=== PATIENT | male | born 1980 | race Caucasian/White ===

== ENCOUNTER 2016-10-11 23:25 | Inpatient (IN) | payer MEDICAID ==
--- NOTE | 2016-10-12 00:09 | EDPHY ---
H & P Stated Complaint: med clear chronic hx no c/o HPI/ROS: HPI CHIEF COMPLAINT: Shortness of breath, hypertension, fluid buildup HISTORY OF PRESENT ILLNESS: This patient very pleasant 36-year-old male significant past medical history for multiple chronic medical problems including COPD on oxygen 2 L 24 hours day, pre diabetes, pacemaker due to 3rd degree heart block, hypertension, and heart failure who presents to the emergency room after he was rest tonight brought to assisted. Upon arrival to assisted they did intake vitals and he had a low oxygen level of 71% however he was not on his oxygen. Presents emergency room stating they does feel short of breath and that he has fluid overload. Patient tells me that he has been compliant with his medications however he is not taking any of his medications today. He last took his blood pressure medication yesterday. It is noted upon arrival to the emergency room is blood pressure is over 200. He has no chest pain but does endorse shortness of breath. Heart rate is noted to be tachycardic in the 1 teens. He tells me his weight is way up and feels that he needs diuresis. Past Medical History: Hypertension, heart failure, chronic kidney disease, COPD , prediabetes, oxygen dependent, third-degree heart block, pacemaker Past Surgical History: Left chest pacemaker, boxer's fracture Social History: denies use of drugs alcohol tobacco products Family History: Noncontributory ROS REVIEW OF SYSTEMS: A comprehensive 10 point review of systems is otherwise negative aside from elements mentioned in the history of present illness. Exam Constitutional appears nontoxic triage nursing summary reviewed, vital signs reviewed, awake/alert. Eyes normal conjunctivae and sclera, EOMI, PERRLA. HENT normal inspection, atraumatic, moist mucus membranes, no epistaxis, neck supple/ no meningismus, no raccoon eyes. Respiratory clear to auscultation bilaterally, normal breath sounds, no respiratory distress, no wheezing. Cardiovascular rate normal, regular rhythm, no murmur, no edema, distal pulses normal. Gastrointestinal soft, non-tender, no rebound, no guarding, normal bowel sounds, no distension, no pulsatile mass. Genitourinary no CVA tenderness. Musculoskeletal no midline vertebral tenderness, full range of motion, no calf swelling, no tenderness of extremities, no meningismus, good pulses, neurovascularly intact. Skin abdominal pannus is red consistent with anasarca, pink, warm, & dry, no rash, skin atraumatic. Neurologic awake, alert and oriented x 3, AAOx3, moves all 4 extremities equally, motor intact, sensory intact, CN II-XII intact, normal cerebellar, normal vision, normal speech. Psychiatric normal mood/affect. Heme/Lymph/Immune anasarca. Differential Diagnosis: includes but is not limited to in a particular order medication noncompliance, hypertensive urgency, volume overload, heart failure, COPD, pneumonia Medical Decision Making: plan for this patient is to restart his home blood pressure medication here in the emergency room, obtain an EKG due to tachycardia , chest x-ray basic blood work. And will re-evaluate. At this time patient has been placed on a full campus monitor and 2 L nasal cannula with an oxygen saturation that is 93%. Re-evaluation: EKG interpretation by me on record in [id number] system. Impression time of EKG 1:35 a.m., this is sinus tachycardia rate of 106, LVH present. T-wave abnormality noted V5 V6 as well as aVL. ED x-ray chest one view: this shows cardiomegaly, poor inspiratory effort, mild pulmonary edema. 0252: Re-evaluation this time patient's blood pressure improved 152/121. No chest pain at this time. He does have a positive troponin most likely due to significant hypertension. No indication he is having acute coronary syndrome or acute ischemia at this time. He is hemodynamically stable. Patient be admitted PCU with a positive troponin and hypertension. His blood pressure improved nicely with p. o. meds and IV hydralazine. No chest pain or shortness of breath at this time. Spoke with Dr. Peng hospalist who agrees to admit. Source: Patient - Personal History Current Tetanus/Diphtheria Vaccine: Yes Current Tetanus Diphtheria and Acellular Pertussis (TDAP): Yes Tetanus Vaccine Date: CURRENT - Medical/Surgical History Hx Asthma: No Hx Chronic Respiratory Disease: Yes Hx Diabetes: No Hx Cardiac Disease: Yes Hx Renal Disease: Yes Hx Cirrhosis: No Hx Alcoholism: No Hx HIV/AIDS: No Hx Splenectomy or Spleen Trauma: No Other PMH: PMH: chf; htn; stage 2 kidney dis; copd, pre-diabetic. PSH: pacemaker - Social History Smoking Status: Former smoker Constitutional: Initial Vital Signs Temperature (C) 36.8 C 10/11/16 23:40 Heart Rate 115 H 10/11/16 23:40 Respiratory Rate 22 H 10/11/16 23:40 Blood Pressure 225/148 H 10/11/16 23:40 O2 Sat (%) 95 10/11/16 23:40 O2 Delivery Mode Nasal Cannula O2 (L/minute) 2 Allergies/Adverse Reactions: No Known Allergies Allergy (Verified 05/11/16 14:33) Home Medications: Medication Instructions Recorded Torsemide [Demadex] 50 mg PO BIDDIUR 10/11/16 Aspirin [Aspirin 81mg (*)] 81 mg PO DAILY 10/12/16 Atorvastatin Calcium [Lipitor 40 40 mg PO DAILY 10/12/16 mg (*)] Carvedilol [Coreg (*)] 50 mg PO BIDMEAL 10/12/16 Hydralazine HCl 100 mg PO BIDMEAL 10/12/16 Metformin HCl [Metformin 1000 mg] 1,000 mg PO BIDMEAL 10/12/16 Spironolactone [Aldactone 25 MG 25 mg PO BID 10/12/16 (*)] amLODIPine BESYLATE [Norvasc 5 mg 5 mg PO DAILY 10/12/16 (*)] clonIDINE [Catapres (*)] 0.1 mg PO BID 10/12/16 Medical Decision Making - Data Points Laboratory Results: Laboratory Results 10/12/16 01:20 10/12/16 01:20 Medications Given: Discontinued Medications Amlodipine Besylate (Norvasc) 5 mg PO EDNOW ONE Stop: 10/12/16 00:46 Last Admin: 10/12/16 01:40 Dose: 5 mg Aspirin (Aspirin) 324 mg PO ONCE ONE Stop: 10/12/16 03:11 Last Admin: 10/12/16 03:05 Dose: 324 mg Carvedilol (Coreg) 3.125 mg PO EDNOW ONE Stop: 10/12/16 00:46 Last Admin: 10/12/16 01:40 Dose: 3.125 mg Carvedilol (Coreg) 50 mg PO BIDMEAL LUCILA Stop: 04/10/17 17:59 Last Admin: 10/12/16 16:10 Dose: 50 mg Clonidine (Catapres) 0.2 mg PO EDNOW ONE Stop: 10/12/16 00:46 Last Admin: 10/12/16 01:40 Dose: 0.2 mg Clonidine (Catapres) 0.1 mg PO ONCE ONE Stop: 10/12/16 16:31 Last Admin: 10/12/16 16:26 Dose: 0.1 mg Clonidine (Catapres) 0.1 mg PO ONCE ONE Stop: 10/12/16 16:31 Last Admin: 10/12/16 16:40 Dose: Not Given Enoxaparin Sodium (Lovenox) 150 mg SC EDNOW ONE Stop: 10/12/16 02:19 Last Admin: 10/12/16 03:57 Dose: 150 mg Furosemide (Lasix Injection) 40 mg IVP ONCE ONE Stop: 10/12/16 02:53 Last Admin: 10/12/16 03:12 Dose: 40 mg Hydralazine HCl (Apresoline) 10 mg IVP EDNOW ONE Stop: 10/12/16 02:20 Last Admin: 10/12/16 02:52 Dose: 10 mg Perflutren Lipid Microsphere (Definity) 0 mg IV ONCE ONE Stop: 10/12/16 12:31 Last Admin: 10/12/16 13:32 Dose: Not Given Departure - Departure Disposition: [facility] Clinical Impression: Hypertensive urgency, Troponin level elevated Condition: Fair
[2016-10-12] MEDS ORDERED: amLODIPine BESYLATE 5 MG TAB PO ONE (00:45)
[2016-10-12] MEDS ORDERED: CARVEDILOL 3.125 MG TAB PO ONE (00:45)
[2016-10-12 01:30] LABS: % IMMATURE GRANULYOCYTES 0.4 % (0.0-1.1); ABSOLUTE IMMATURE GRANULOCYTES 0.05 10^3/uL (0.00-0.10); ADD DIFF? NO; ADD MORPH? NO; ADD SCAN? NO; ATYPICAL LYMPHOCYTE FLAG 0 (0-99); FRAGMENT RBC FLAG 0 (0-99); HEMATOCRIT 46.9 % (40.0-51.0); HEMOGLOBIN 14.2 g/dL (13.7-17.5); LEFT SHIFT FLG 0 (0-99); LIPEMIA HEMOLYSIS FLAG 80 (0-99); MEAN CELL HEMOGLOBIN 25.8 pg (27.9-34.1); MEAN CELL HEMOGLOBIN CONCENTR. 30.3 g/dL (32.4-36.7); MEAN CELL VOLUME 85.3 fL (81.5-99.8); MEAN PLATELET VOLUME 10.6 fL (8.7-11.7); PLATELET CLUMPS FLAG 10 (0-99); PLATELET COUNT 241 10^3/uL (150-400)
--- NOTE | 2016-10-12 01:36 | CPEKG ---
Heart Rate: 106 RR Interval: 566 P-R Interval: 176 QRSD Interval: 84 QT Interval: 356 QTC Interval: 473 P Wink: 52 QRS Wink: 0 T Wave Wink: 161 EKG Severity - ABNORMAL ECG - EKG Impression: SINUS TACHYCARDIA EKG Impression: LVH WITH SECONDARY REPOLARIZATION ABNORMALITY Electronically Signed By: Pradip Steele 12-Oct-2016 07:29:26
[2016-10-12 01:40] LABS: ALANINE AMINOTRANSFERASE 79 IU/L (21-72); ALBUMIN 3.3 g/dL (3.5-5.0); ALKALINE PHOSPHATASE 78 IU/L (38-126); ANION GAP 7 mEq/L (8-16); ASPARTATE AMINOTRANSFERASE 39 IU/L (17-59); BILIRUBIN,TOTAL 0.6 mg/dL (0.1-1.4); BILIRUBIN-CONJUGATED 0.3 mg/dL (0.0-0.5); BILIRUBIN-UNCONJUGATED 0.3 mg/dL (0.0-1.1); CALCIUM 8.6 mg/dL (8.5-10.4); CARBON DIOXIDE 32 mEq/l (22-31); CHLORIDE 103 mEq/L (97-110); GLOMERULAR FILTRATION RATE > 60; GLUCOSE 84 mg/dL (70-100); MAGNESIUM 1.9 mg/dL (1.6-2.3); POTASSIUM 4.6 mEq/L (3.5-5.2); SODIUM 142 mEq/L (134-144); TOTAL PROTEIN 6.8 g/dL (6.3-8.2)
[2016-10-12 01:53] LABS: CREATINE KINASE-MB FRACTION 4.09 ng/mL (0-3.19); TROPONIN I 0.076 ng/mL (0-0.034)
[2016-10-12 01:55] LABS: CK-MB INTERPRETATION NEGATIVE (NEGATIVE)
[2016-10-12] MEDS ORDERED: ENOXAPARIN 150 MG/ML SYR SC ONE (02:18)
[2016-10-12] MEDS ORDERED: hydrALAZINE 20 MG/ML VIAL IVP ONE (02:19)
[2016-10-12 02:31] LABS: INR 0.91 (0.83-1.16); PROTIME(PATIENT) 12.2 SEC (12.0-15.0)
[2016-10-12] MEDS ORDERED: FUROSEMIDE 40 MG/4 ML VIAL IVP ONE (02:52)
[2016-10-12] MEDS ORDERED: ASPIRIN 81 MG CHEWABLE TAB ONE ×2 (02:54→13:34)
[2016-10-12] MEDS ORDERED: ASPIRIN 81 MG CHEWABLE TAB PO ONE (03:10)
[2016-10-12] MEDS ORDERED: ONDANSETRON DISINTEGRATING 4 MG TAB PO PRN (04:50)
[2016-10-12] MEDS ORDERED: ONDANSETRON 4 MG/2 ML VIAL IVP PRN (04:50)
[2016-10-12] MEDS ORDERED: PROMETHAZINE HCL 25 MG/ML INJ IVP PRN (04:50)
[2016-10-12] MEDS ORDERED: ACETAMINOPHEN 325 MG TAB PO PRN (04:50)
[2016-10-12] MEDS ORDERED: NS 1,000 ML IV SCH (05:00)
--- NOTE | 2016-10-12 07:40 | PDGENHP ---
History and Physical - Chief Complaint [facility] - History of Present Illness 36 yo M with PMH of combined systolic/diastolic CHF as well as HTN and morbid obesity presenting after being found to be hypoxic [facility]. He is a bit tangential in his history but it sounds like he has been working for [employer] and got arrested for something that he "did not do. " When [facility] he was evaluated by the nurse and was noted to be hypoxic on RA to 71% and was sent to the ER for further evaluation. He notes that he has put on a large amount of weight, close to 100 pounds, in the last several months, some of which he thinks is fluid related weight gain. He has also had increased fatigue and worsening exercise tolerance. He is concerned about his inability to get on social security. He denies any issues with med noncomplaince. He states that his BP has been largely controlled prior to coming to the hospital but thinks it is elevated this morning because he has not had his morning medications yet. He denies chest pain. He has not had fever or chills. He is looking into getting a "gastric sleeve" surgery to deal with his weight gain. History Information - Allergies/Home Medication List Allergies/Adverse Reactions: No Known Allergies Allergy (Verified 05/11/16 14:33) Home Medications: Simvastatin [Zocor 20 mg] 02/28/13 [Last Taken 05/22/16] Spironolactone [Aldactone 25 MG (*)] 02/28/13 [Last Taken 05/22/16] Aspirin [Aspirin 81mg (*)] 07/15/15 [Last Taken 05/19/16] amLODIPine BESYLATE [Norvasc 10 mg (*)] 07/15/15 [Last Taken 05/23/16] clonIDINE [Catapres (*)] 07/15/15 [Last Taken 05/23/16 07:00] hydrALAZINE [Apresoline 10 mg (*)] 07/16/15 [Last Taken 05/22/16] Carvedilol [Coreg (*)] 05/11/16 [Last Taken 05/23/16] Furosemide 10/11/16 [Last Taken Unknown] I have personally reviewed and updated: family history, medical history, social history, surgical history - Past Medical History coronary artery disease (non obstructive), CHF (systolic function most recently 60-65%, previously 25%, combined diastolic dysfunction), COPD, hypertension, hyperlipidemia Additional medical history: ckd with baseline creat of 1.4. morbid obestiy. chronic pain. chronic respiratory failure with baseline o2 of 2L. BERKLEY on cpap - Surgical History Reports: no pertinent surgical hx - Family History Positive for: non-pertinent - Social History Smoking Status: Former smoker Alcohol Use: Rarely Drug Use: None Additional social history: had been working for [employer], recently arrested Review of Systems ROS: 10pt was reviewed & negative except for what was stated in HPI & below Physical Exam Temp Pulse Resp BP Pulse Ox 36.8 C 101 H 18 122/92 H 93 10/11/16 23:40 10/12/16 06:00 10/12/16 06:00 10/12/16 06:00 10/12/16 06:00 O2 (L/minute) 2 Constitutional: no apparent distress, obese, unkempt Eyes: PERRL, anicteric sclera Ears, Nose, Mouth, Throat: moist mucous membranes, hearing normal Cardiovascular: regular rate and rhythym, edema (2+ pitting edema to mid calves) , other (very distant heart sounds 2/2 body habitus) Respiratory: no respiratory distress, no rales or rhonchi, reduced air movement Gastrointestinal: normoactive bowel sounds, soft, non-tender abdomen Genitourinary: no bladder tenderness Skin: warm, normal color Musculoskeletal: full muscle strength, No asymmetric calves, No muscular tenderness Neurologic: AAOx3 Psychiatric: interacting appropriately, not encephalopathic, anxious Lab Data & Imaging Review 10/12/16 01:20 10/12/16 01:20 WBC 12.57 10^3/uL (3.80-9.50) H 10/12/16 01:20 RBC 5.50 10^6/uL (4.40-6.38) 10/12/16 01:20 Hgb 14.2 g/dL (13.7-17.5) 10/12/16 01:20 Hct 46.9 % (40.0-51.0) 10/12/16 01:20 MCV 85.3 fL (81.5-99.8) 10/12/16 01:20 MCH 25.8 pg (27.9-34.1) L 10/12/16 01:20 MCHC 30.3 g/dL (32.4-36.7) L 10/12/16 01:20 RDW 16.0 % (11.5-15.2) H 10/12/16 01:20 Plt Count 241 10^3/uL (150-400) 10/12/16 01:20 MPV 10.6 fL (8.7-11.7) 10/12/16 01:20 Neut % (Auto) 73.4 % (39.3-74.2) 10/12/16 01:20 Lymph % (Auto) 15.3 % (15.0-45.0) 10/12/16 01:20 [place] % (Auto) 8.7 % (4.5-13.0) 10/12/16 01:20 Eos % (Auto) 1.8 % (0.6-7.6) 10/12/16 01:20 Baso % (Auto) 0.4 % (0.3-1.7) 10/12/16 01:20 Nucleat RBC Rel Count 0.0 % (0.0-0.2) 10/12/16 01:20 Absolute Neuts (auto) 9.23 10^3/uL (1.70-6.50) H 10/12/16 01:20 Absolute Lymphs (auto) 1.92 10^3/uL (1.00-3.00) 10/12/16 01:20 Absolute Monos (auto) 1.09 10^3/uL (0.30-0.80) H 10/12/16 01:20 Absolute Eos (auto) 0.23 10^3/uL (0.03-0.40) 10/12/16 01:20 Absolute Basos (auto) 0.05 10^3/uL (0.02-0.10) 10/12/16 01:20 Absolute Nucleated RBC 0.00 10^3/uL (0-0.01) 10/12/16 01:20 Immature Gran % 0.4 % (0.0-1.1) 10/12/16 01:20 Immature Gran # 0.05 10^3/uL (0.00-0.10) 10/12/16 01:20 PT 12.2 SEC (12.0-15.0) 10/12/16 02:15 INR 0.91 (0.83-1.16) 10/12/16 02:15 APTT 20.0 SEC (23.0-38.0) L 10/12/16 02:15 Sodium 142 mEq/L (134-144) 10/12/16 01:20 Potassium 4.6 mEq/L (3.5-5.2) 10/12/16 01:20 Chloride 103 mEq/L (97-110) 10/12/16 01:20 Carbon Dioxide 32 mEq/l (22-31) H 10/12/16 01:20 Anion Gap 7 mEq/L (8-16) L 10/12/16 01:20 BUN 19 mg/dL (7-23) 10/12/16 01:20 Creatinine 1.0 mg/dL (0.7-1.3) 10/12/16 01:20 Estimated GFR > 60 10/12/16 01:20 Glucose 84 mg/dL (70-100) 10/12/16 01:20 Calcium 8.6 mg/dL (8.5-10.4) 10/12/16 01:20 Magnesium 1.9 mg/dL (1.6-2.3) 10/12/16 01:20 Total Bilirubin 0.6 mg/dL (0.1-1.4) 10/12/16 01:20 Conjugated Bilirubin 0.3 mg/dL (0.0-0.5) 10/12/16 01:20 Unconjugated Bilirubin 0.3 mg/dL (0.0-1.1) 10/12/16 01:20 AST 39 IU/L (17-59) 10/12/16 01:20 ALT 79 IU/L (21-72) H 10/12/16 01:20 Alkaline Phosphatase 78 IU/L (38-126) 10/12/16 01:20 Creatine Kinase 190 IU/L (0-224) 10/12/16 01:20 CK-MB (CK-2) Fraction 4.09 ng/mL (0-3.19) H 10/12/16 01:20 CK-MB (CK-2) % 2.2 % (0.0-4.0) 10/12/16 01:20 Creatine Kinase Interp NEGATIVE (NEGATIVE) 10/12/16 01:20 Troponin I 0.075 ng/mL (0-0.034) H 10/12/16 06:40 NT-Pro-B Natriuret Pep 985 pg/mL (0-125) H 10/12/16 01:20 Total Protein 6.8 g/dL (6.3-8.2) 10/12/16 01:20 Albumin 3.3 g/dL (3.5-5.0) L 10/12/16 01:20 Lipase 103.0 IU/L (23-300) 10/12/16 01:20 Visualized and Interpreted Chest x-ray results: Yes Chest X-Ray results: other (cardiomegaly, diffuse pulmonary edema) Visualized and Interpreted EKG results: Yes EKG Interpretation: Positive for: normal sinsus rhythm EKG additional interpertation: LVH Assessment & Plan Assessment: 36 yo M with PMH of CHF, HTN, morbid obesity and chronic respiratory failure admitted with acute on chronic resp failure and CHF exacerbation. # acute on chronic hypoxic respiratory failure: sounds like the low sats found [facility] were in the setting of patient being on RA for unclear reasons. He denies typically being non compliance with his oxygen. His CXR does have e/o worsened pulmonary edema compared to prior, started on lasix and will continue 40 bid IV for now. Back to his baseline o2 requirement and sating in low 90s. # acute on chronic diastolic heart failure: with ble edema and pulm edema on cxr. Patient denies issues with non compliance with his medications but is not clear what meds he is actually taking. Tx is as above, cardiology consulted by ER, he is followed by [facility]. # hypertensive urgency: in setting of being off of his medications for at least the last day but suspect longer than that. Will resume his home medications once these are reconciled, prn hydralazine, IVP lasix. # elevated trop: so far the trend has been flat, continue to monitor on tele, continue to trend trops. He has undergone cardiac cath in 2011 at which time he had non obstructive CAD, does not sound as if he has had ischemic w/u since then. # ckd: currently better than his usual baseline again supporting the idea that he has not been taking his home medications including lasix. Montioring. # berkley: will get cpap while in house at hs # morbid obesity: patient hoping to have gastric banding or such surgery, will ask for dietary to eval while in house # dispo: observation status, patient already back to baseline o2 and likely can dc in < 48 hours if remains stable Patient new to my care. Old records were reviewed and summarized as above. Care plan reviewed with ER doc including plans for IV lasix.
[2016-10-12] MEDS ORDERED: FUROSEMIDE 40 MG/4 ML VIAL ONE (09:53)
[2016-10-12] MEDS: FUROSEMIDE 40 MG/4 ML VIAL IVP SCH ×2 (09:54→15:51)
[2016-10-12] MEDS: ENOXAPARIN 40 MG/0.4 ML SYR SC SCH (11:45)
[2016-10-12] MEDS ORDERED: PERFLUTREN LIPID MICROSPHERES 1.1 MG/ML VIAL IV ONE (12:30)
[2016-10-12] MEDS: amLODIPine BESYLATE 5 MG TAB PO SCH (14:03)
[2016-10-12] MEDS: ATORVASTATIN CALCIUM 40 MG TAB PO SCH (14:03)
[2016-10-12] MEDS: ASPIRIN 81 MG CHEWABLE TAB PO SCH (14:03)
--- NOTE | 2016-10-12 16:43 | PDCARCONS ---
Cardiology Consult Reason for Consult: hypertension Chief Complaint: shortness of breath History of Present Illness: HPI: Ross is a 36 year old man with a history of non-flow coronary artery disease via cardiac catheterization performed in 2011, severe hypertension, morbid obesity, obstructive sleep apnea, congestive heart failure with reduce ejection fraction historically as low as 25% (echocardiogram on 07/20 revealed ejection fraction of 65% with trivial mitral regurgitation). He has been historically non-compliant with his medications in the past. Ross was recently arrested for failure to appear to court regarding a traffic violation. 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 He was taken to nursing home where he was found to be severely hypertensive and hypoxic and was subsequently brought to the hospital. He is feeling fairly well today without chest discomfort/pressure/pain/tightness or other cardiac symptoms. He is chronically short of breath. The patient has recently gained a large amount of weight as he suffers from back pain and is unable to exercise as frequently as he would like. He is considering gastric sleeve surgery or some kind of gastric bypass operation to lose weight. Plan/Assessment: 1. Severe hypertension. >200/90 mmHg at the time of this note. He has been placed on Coreg 50 mg BID and 5 mg Norvasc daily. I have asked his medication be given now as his blood pressure remains highly elevated. I would like to increase the Coreg to 50 mg TID. Bradycardia should not be a concern as the patient has a pacemaker. On Lasix 40 mg IVP. 2. Acute on chronic diastolic heart failure. BNP measured at 985 pg/mL, stable troponin elevation at ~0.07 ng/mL. 3. Coronary artery disease. I viewed cardiac catheterization images performed in 2011 which revealed non-flow limiting disease with maximal luminal stenosis of ~50% in the LAD and ~40% left circumflex. It is unlikely his coronary disease has progressed significantly in this short amount of time. 4. S/p dual-chamber pacemaker insertion for second degree type II AV block and possible 3 degree AV block with associated syncope. Pacemaker interrogation revealed normal device function without arrhythmias noted. 5. Acute on chronic hypoxic respiratory failure. 6. Morbid obesity. 7. Obstructive sleep apnea. Should be treated at home with CPAP. History Information - Allergies/Home Medication List Allergies/Adverse Reactions: No Known Allergies Allergy (Verified 05/11/16 14:33) Home Medications: Torsemide [Demadex] 50 mg PO BIDDIUR 10/11/16 [Last Taken 10/11/16] Aspirin [Aspirin 81mg (*)] 81 mg PO DAILY 10/12/16 [Last Taken 10/11/16] Atorvastatin Calcium [Lipitor 40 mg (*)] 40 mg PO DAILY 10/12/16 [Last Taken 03/22] Carvedilol [Coreg (*)] 50 mg PO BIDMEAL 10/12/16 [Last Taken 10/11/16] Hydralazine HCl 100 mg PO BIDMEAL 10/12/16 [Last Taken 10/11/16] Metformin HCl [Metformin 1000 mg] 1,000 mg PO BIDMEAL 10/12/16 [Last Taken 10/11] Spironolactone [Aldactone 25 MG (*)] 25 mg PO BID 10/12/16 [Last Taken 10/11/16] amLODIPine BESYLATE [Norvasc 5 mg (*)] 5 mg PO DAILY 10/12/16 [Last Taken ] clonIDINE [Catapres (*)] 0.1 mg PO BID 10/12/16 [Last Taken 10/11/16] I have personally reviewed and updated: medical history, social history, surgical history - Past Medical History coronary artery disease, CHF, COPD, hypertension, hyperlipidemia - Surgical History Reports: pacemaker/AICD - Social History Smoking Status: Former smoker Alcohol Use: Rarely Drug Use: None Cardiac History - Cardiac History Past Cardiac History: CAD, PACEMAKER Cardiac Risk Factors: hypertension (>140/90), lipidemia, male NORA Risk Evaluation age greater or equal to 65: no greater or equal to 3 CAD risk factors: yes known CAD(stenosis greater or eqaul to 50%): yes ASA use in past 7 days: no severe angina(greater or equal to 2 episodes in 24hrs): no EKG ST changes greater or equal to 0.5mm: no positive cardiac marker: yes Total Score: 3 NORA Score: 13.2% risk Physical Exam Temp Pulse Resp BP Pulse Ox 36.6 C 97 16 203/122 H 93 10/12/16 15:59 10/12/16 15:59 10/12/16 15:59 10/12/16 15:59 10/12/16 15:59 O2 (L/minute) 3 Constitutional: no apparent distress, appears nourished, not in pain, obese Eyes: anicteric sclera Ears, Nose, Mouth, Throat: hearing normal Cardiovascular: regular rate and rhythym, no murmur, rub, or gallop, edema Respiratory: no respiratory distress, no rales or rhonchi, reduced air movement Gastrointestinal: normoactive bowel sounds Genitourinary: no bladder tenderness Skin: warm, normal color Musculoskeletal: full muscle strength, No asymmetric calves Neurologic: AAOx3 Psychiatric: interacting appropriately Lymph, Heme, Immunologic: no cervical LAD Lab and Imaging 10/12/16 01:20 10/12/16 01:20 WBC 12.57 10^3/uL (3.80-9.50) H 10/12/16 01:20 RBC 5.50 10^6/uL (4.40-6.38) 10/12/16 01:20 Hgb 14.2 g/dL (13.7-17.5) 10/12/16 01:20 Hct 46.9 % (40.0-51.0) 10/12/16 01:20 MCV 85.3 fL (81.5-99.8) 10/12/16 01:20 MCH 25.8 pg (27.9-34.1) L 10/12/16 01:20 MCHC 30.3 g/dL (32.4-36.7) L 10/12/16 01:20 RDW 16.0 % (11.5-15.2) H 10/12/16 01:20 Plt Count 241 10^3/uL (150-400) 10/12/16 01:20 MPV 10.6 fL (8.7-11.7) 10/12/16 01:20 Neut % (Auto) 73.4 % (39.3-74.2) 10/12/16 01:20 Lymph % (Auto) 15.3 % (15.0-45.0) 10/12/16 01:20 [place] % (Auto) 8.7 % (4.5-13.0) 10/12/16 01:20 Eos % (Auto) 1.8 % (0.6-7.6) 10/12/16 01:20 Baso % (Auto) 0.4 % (0.3-1.7) 10/12/16 01:20 Nucleat RBC Rel Count 0.0 % (0.0-0.2) 10/12/16 01:20 Absolute Neuts (auto) 9.23 10^3/uL (1.70-6.50) H 10/12/16 01:20 Absolute Lymphs (auto) 1.92 10^3/uL (1.00-3.00) 10/12/16 01:20 Absolute Monos (auto) 1.09 10^3/uL (0.30-0.80) H 10/12/16 01:20 Absolute Eos (auto) 0.23 10^3/uL (0.03-0.40) 10/12/16 01:20 Absolute Basos (auto) 0.05 10^3/uL (0.02-0.10) 10/12/16 01:20 Absolute Nucleated RBC 0.00 10^3/uL (0-0.01) 10/12/16 01:20 Immature Gran % 0.4 % (0.0-1.1) 10/12/16 01:20 Immature Gran # 0.05 10^3/uL (0.00-0.10) 10/12/16 01:20 PT 12.2 SEC (12.0-15.0) 10/12/16 02:15 INR 0.91 (0.83-1.16) 10/12/16 02:15 APTT 20.0 SEC (23.0-38.0) L 10/12/16 02:15 Sodium 142 mEq/L (134-144) 10/12/16 01:20 Potassium 4.6 mEq/L (3.5-5.2) 10/12/16 01:20 Chloride 103 mEq/L (97-110) 10/12/16 01:20 Carbon Dioxide 32 mEq/l (22-31) H 10/12/16 01:20 Anion Gap 7 mEq/L (8-16) L 10/12/16 01:20 BUN 19 mg/dL (7-23) 10/12/16 01:20 Creatinine 1.0 mg/dL (0.7-1.3) 10/12/16 01:20 Estimated GFR > 60 10/12/16 01:20 Glucose 84 mg/dL (70-100) 10/12/16 01:20 Calcium 8.6 mg/dL (8.5-10.4) 10/12/16 01:20 Magnesium 1.9 mg/dL (1.6-2.3) 10/12/16 01:20 Total Bilirubin 0.6 mg/dL (0.1-1.4) 10/12/16 01:20 Conjugated Bilirubin 0.3 mg/dL (0.0-0.5) 10/12/16 01:20 Unconjugated Bilirubin 0.3 mg/dL (0.0-1.1) 10/12/16 01:20 AST 39 IU/L (17-59) 10/12/16 01:20 ALT 79 IU/L (21-72) H 10/12/16 01:20 Alkaline Phosphatase 78 IU/L (38-126) 10/12/16 01:20 Creatine Kinase 190 IU/L (0-224) 10/12/16 01:20 CK-MB (CK-2) Fraction 4.09 ng/mL (0-3.19) H 10/12/16 01:20 CK-MB (CK-2) % 2.2 % (0.0-4.0) 10/12/16 01:20 Creatine Kinase Interp NEGATIVE (NEGATIVE) 10/12/16 01:20 Troponin I 0.069 ng/mL (0-0.034) H 10/12/16 13:40 NT-Pro-B Natriuret Pep 985 pg/mL (0-125) H 10/12/16 01:20 Total Protein 6.8 g/dL (6.3-8.2) 10/12/16 01:20 Albumin 3.3 g/dL (3.5-5.0) L 10/12/16 01:20 Lipase 103.0 IU/L (23-300) 10/12/16 01:20 Visualized and Interpreted EKG results: Yes EKG Interpretation: Positive for: LVH, normal sinsus rhythm
[2016-10-12] MEDS ORDERED: hydrALAZINE 20 MG/ML VIAL IVP PRN (16:55)
--- NOTE | 2016-10-12 16:59 | HOSPPROG ---
Hospitalist Progress Note Assessment/Plan: 36 yo M with PMH of CHF, HTN, morbid obesity and chronic respiratory failure admitted with acute on chronic resp failure and CHF exacerbation. # acute on chronic hypoxic respiratory failure: -Now back on 2L - 3 L which is his baseline # acute on chronic diastolic heart failure: with ble edema and pulm edema on cxr. Patient denies issues with non compliance with his medications but is not clear what meds he is actually taking. -On Scheduled Lasix 40mg IV BID -Cards following #HTN urgency: in setting of being off of his medications for at least the last day but suspect longer than that -Cards has ordered all his oral medications to be given early. They are considering increasing Coreg 50mg to TID dosing -will also provide Hydralazine as needed # elevated trop, hx of CAD -Serial Trops, flat currently -Tele -Cards # ckd: currently better than his usual baseline again supporting the idea that he has not been taking his home medications including lasix. Monitoring for now. # berkley: will get cpap while in house at # morbid obesity: patient hoping to have gastric banding or such surgery, will ask for dietary to eval while in house # dispo: observation status, patient already back to baseline o2 and likely can dc in < 48 hours if remains stable S: Feels better, although still SOB BP is increased. Systolic 200's No CP. Objective: Vital Signs Temp Pulse Resp BP Pulse Ox 36.6 C 97 16 203/122 H 93 10/12/16 15:59 10/12/16 15:59 10/12/16 15:59 10/12/16 15:59 10/12/16 15:59 10/11/16 10/12/16 10/13/16 05:59 05:59 05:59 Intake Total 1300 500 Output Total 625 2024 Balance 675 -1525 PT 12.2 SEC (12.0-15.0) 10/12/16 02:15 INR 0.91 (0.83-1.16) 10/12/16 02:15 - Physical Exam Constitutional: no apparent distress, appears nourished, not in pain Eyes: PERRL, anicteric sclera, EOMI Ears, Nose, Mouth, Throat: moist mucous membranes, hearing normal, ears appear normal, no oral mucosal ulcers Cardiovascular: regular rate and rhythym, no murmur, rub, or gallop, edema (3+ LE edema) Respiratory: reduced air movement, rhonchi Gastrointestinal: normoactive bowel sounds, soft, non-tender abdomen, no palpable masses Genitourinary: no bladder fullness Skin: warm, normal color Musculoskeletal: full muscle strength Neurologic: AAOx3, sensation intact bilaterally Psychiatric: interacting appropriately, not anxious, not encephalopathic, thought process linear ICD10 Worksheet Patient Problems: Problems Problem Status Onset Hypertensive urgency Acute Troponin level elevated Acute CHF - Congestive heart failure Active Hypoxemia Active Malignant hypertension Active Nicotine dependence Active Sleep apnea Active Systolic dysfunction Active CHRIS (acute kidney injury) Acute Acute hypoxemic respiratory failure Acute CKD (chronic kidney disease) Acute Edema, peripheral Acute Nonischemic cardiomyopathy Acute Renal failure Acute
--- NOTE | 2016-10-12 17:20 | ECHO ---
[id number] + + [address] : : [place] [address] : : [phone] + + Adult Echocardiographic Report + + :Name: BERKLEY ESTHER Sheldon Study Date: 10/12/2016 12:36 PM : : Hospital Admission Number: [id number] : :: 1980 Gender: Male Height: 69 in : :Age: 36 yrs Race: WH,White Weight: 380 lb : :Reason For Study: Eval LV Fx : : BSA: 2.7 meters2: :History: Chest Pain : + + MMode/2D Measurements \T\ Calculations IVSd: 1.4 cm LVIDd: 5.0 cm FS: 39.5 % Ao root diam: 3.4 cm LVPWd: 1.4 cm LVIDs: 3.0 cm EDV(Teich): 116.1 ml ACS: 1.9 cm ESV(Teich): 35.0 ml EF(Teich): 69.8 % Normal Measurement Values: + + :LVIDd (3.5-5.7cm) IVSd (0.6-1.1cm) LVPWd (0.6-1.1cm) Aortic Root (2.0-3.7cm)Left Atrium (1.5-4.0cm): :LV Vol(d) (76-115ml) LV Vol(s) (29-48ml) Ejec Fraction (50-65%)PV Den (0.6- 1.2m/s) TV Den (0.4-1.0m/s) : :MV E Den (0.8-1.0m/s)MV A Den (0.3-1.0m/s)LVOT Den (0.7-1.2m/s) Asc Ao Den ( 0.9-1.8m/s) : + + Doppler Measurements \T\ Calculations MV E max den: Ao V2 max: LV V1 max: PA V2 max: 94.8 cm/sec 107.0 cm/sec 94.3 cm/sec 81.4 cm/sec MV A max den: Ao max P.6 mmHg LV V1 max PG: PA max P.6 cm/sec 3.6 mmHg 2.7 mmHg MV E/A: 1.4 Left Ventricle The left ventricle is normal in size. There is mild concentric left ventricular hypertrophy. The left ventricular ejection fraction is normal. Ejection Fraction = 60%. The left ventricular wall motion is normal. Right Ventricle The right ventricle is normal in size and function. Atria The left atrial size is normal. Right atrial size is normal. Mitral Valve The mitral valve is normal in structure and function. There is no mitral valve stenosis. There is no mitral regurgitation noted. Tricuspid Valve Normal tricuspid valve. No tricuspid regurgitation. Aortic Valve The aortic valve is normal in structure and function. There is no aortic stenosis. There is no aortic insufficiency. Pulmonic Valve The pulmonic valve is normal in structure and function. There is no pulmonic valvular regurgitation. Great Vessels The aortic root is normal size. Pericardium/Pleural There is no pericardial effusion. Conclusion A complete two-dimensional transthoracic echocardiogram was performed (2D, M-mode, Doppler and color flow Doppler). The left ventricle is normal in size. There is mild concentric left ventricular hypertrophy. The left ventricular ejection fraction is normal. .33mg definity contrast used to help with endocardial definition. The left ventricular wall motion is normal. The right ventricle is normal in size and function. The left atrial size is normal. Normal cardiac valves. There is no pericardial effusion. Ejection Fraction = 60%. Final Reading Physician: Mario Xiong signed on 10/12/2016 05:19 PM Ordering Physician: Glenna Peng Performed By: Yoseph Lopez, CS
--- NOTE | 2016-10-12 17:47 | CPEKG ---
Heart Rate: 88 RR Interval: 682 P-R Interval: 192 QRSD Interval: 86 QT Interval: 416 QTC Interval: 504 P [place]: 51 QRS [place]: -2 T Wave [place]: 165 EKG Severity - ABNORMAL ECG - EKG Impression: SINUS RHYTHM EKG Impression: LVH WITH SECONDARY REPOLARIZATION ABNORMALITY EKG Impression: PROLONGED QT INTERVAL EKG Impression: COMPARED WITH PRIOR TRACING, HR SLOWER, QT LONGER Electronically Signed By: Khadra Villarreal 13-Oct-2016 10:34:58
[2016-10-12] MEDS ORDERED: CARVEDILOL 25 MG TAB PO SCH ×2 (18:00→18:30)
[2016-10-12] MEDS: CARVEDILOL 25 MG TAB PO SCH (21:20)
[2016-10-13 05:14] LABS: % IMMATURE GRANULYOCYTES 0.4 % (0.0-1.1); ABSOLUTE IMMATURE GRANULOCYTES 0.05 10^3/uL (0.00-0.10); ADD DIFF? NO; ADD MORPH? NO; ADD SCAN? NO; ATYPICAL LYMPHOCYTE FLAG 0 (0-99); FRAGMENT RBC FLAG 0 (0-99); HEMATOCRIT 47.8 % (40.0-51.0); HEMOGLOBIN 14.3 g/dL (13.7-17.5); LEFT SHIFT FLG 0 (0-99); LIPEMIA HEMOLYSIS FLAG 70 (0-99); MEAN CELL HEMOGLOBIN CONCENTR. 29.9 g/dL (32.4-36.7); MEAN CELL VOLUME 86.9 fL (81.5-99.8); MEAN PLATELET VOLUME 11.2 fL (8.7-11.7); PLATELET CLUMPS FLAG 10 (0-99); PLATELET COUNT 267 10^3/uL (150-400); RED CELL DISTRIBUTION WIDTH 16.2 % (11.5-15.2)
[2016-10-13 05:26] LABS: ANION GAP 11 mEq/L (8-16); CALCIUM 8.6 mg/dL (8.5-10.4); CARBON DIOXIDE 32 mEq/l (22-31); CHLORIDE 95 mEq/L (97-110); CREATININE 1.1 mg/dL (0.7-1.3); GLOMERULAR FILTRATION RATE > 60; GLUCOSE 93 mg/dL (70-100); POTASSIUM 4.3 mEq/L (3.5-5.2); SODIUM 138 mEq/L (134-144)
[2016-10-13] MEDS: CARVEDILOL 25 MG TAB PO SCH ×3 (08:04→23:14)
[2016-10-13] MEDS: ASPIRIN 81 MG CHEWABLE TAB PO SCH (08:05)
[2016-10-13] MEDS: ENOXAPARIN 40 MG/0.4 ML SYR SC SCH (08:05)
[2016-10-13] MEDS: amLODIPine BESYLATE 5 MG TAB PO SCH (08:05)
[2016-10-13] MEDS: FUROSEMIDE 40 MG/4 ML VIAL IVP SCH ×2 (08:05→13:38)
[2016-10-13] MEDS: ATORVASTATIN CALCIUM 40 MG TAB PO SCH (08:05)
--- NOTE | 2016-10-13 09:25 | WOCRNPDOC ---
WOCRN Advanced Assessment Note - Skin Integrity Problem, Advanced Assess Bilateral Groin Dermatitis Dressing Type: Open to Air Exudate Amount: None Exudate Characteristic(s): None Frances Wound Tissue: Intact Frances Wound Swelling: None Wound Bed Color: Red Site Odor: Moderate (Yeast-like) Skin Integrity Problem Comment: Moderately raw, denuded skin noted in bilateral groin folds, consitent w/ intertriginous dermatitis from excessive moisture/ friction. Erythema and sattelite lesions noted in a mirror-like pattern on throughout groin, w/ shallow, linear ulceration along the base of the crease. Changed order to Interdry sheets in order to minimize both moisture and friction. Bilateral Pannus Dermatitis Dressing Type: Open to Air Exudate Amount: None Exudate Characteristic(s): None Frances Wound Tissue: Intact Frances Wound Swelling: None Wound Bed Color: Red Site Odor: Moderate (Yeast-like) Skin Integrity Problem Comment: Raw, denuded skin w/ satellite lesions in a mirror-like pattern in pannus, consistent w/ intertriginous, moisture-related dermatitis. Antifugal cream is making area too moist, and powder (per patient report) "goes everywhere," and also does not adequately minimize moisture or friction. Changed order to Interdry sheets, to be worn throughout the day and at night (if patient agrees).
--- NOTE | 2016-10-13 15:44 | HOSPPROG ---
Hospitalist Progress Note Assessment/Plan: # acute decompensated diastolic CHF - likely has 10kg of water weight - cont lasix 40 iv bid - restart aldactone - cont coreg - follow daily wts, renal fxn, lytes # chris on ckd - better, follow # morbid obesity # berkley on cpap # chronic hypoxic resp failure - at baseline 2-3L O2 # htn - better here - coreg, clonidine, norvasc, hydralazine # CAD, elev trops - unlikely ACS per cards # ppm d/t AV block # FCFT # vte ppx - lovenox ## new pt to me chart reviewed CXR personally reviewed Subjective: feels better today overall, still very edematous Objective: Vital Signs Temp Pulse Resp BP Pulse Ox 37.1 C 71 30 H 134/68 H 96 10/13/16 12:07 10/13/16 12:07 10/13/16 12:07 10/13/16 12:07 10/13/16 12:07 Laboratory Results 10/13/16 03:47 10/13/16 03:47 10/12/16 10/13/16 10/14/16 05:59 05:59 05:59 Intake Total 1300 900 950 Output Total 625 2475 925 Balance 675 -1575 25 PT 12.2 SEC (12.0-15.0) 10/12/16 02:15 INR 0.91 (0.83-1.16) 10/12/16 02:15 - Physical Exam Constitutional: no apparent distress, obese Cardiovascular: regular rate and rhythym, no murmur, rub, or gallop Respiratory: no respiratory distress, no rales or rhonchi, clear to auscultation Gastrointestinal: normoactive bowel sounds, soft, non-tender abdomen, no palpable masses ICD10 Worksheet Patient Problems: Problems Problem Status Onset CHF - Congestive heart failure Active Systolic dysfunction Active Hypoxemia Active Sleep apnea Active Nicotine dependence Active Malignant hypertension Active Nonischemic cardiomyopathy Acute Renal failure Acute Edema, peripheral Acute CHRIS (acute kidney injury) Acute CKD (chronic kidney disease) Acute Acute hypoxemic respiratory failure Acute Hypertensive urgency Acute Troponin level elevated Acute
[2016-10-13] MEDS ORDERED: SPIRONOLACTONE 25 MG TAB PO SCH (21:00)
[2016-10-13] MEDS: ENOXAPARIN 60 MG/0.6 ML SYR SC SCH (23:14)
[2016-10-14 05:12] LABS: % IMMATURE GRANULYOCYTES 0.4 % (0.0-1.1); ABSOLUTE IMMATURE GRANULOCYTES 0.05 10^3/uL (0.00-0.10); ADD DIFF? NO; ADD MORPH? NO; ADD SCAN? NO; ATYPICAL LYMPHOCYTE FLAG 10 (0-99); FRAGMENT RBC FLAG 50 (0-99); HEMATOCRIT 47.8 % (40.0-51.0); HEMOGLOBIN 13.9 g/dL (13.7-17.5); LEFT SHIFT FLG 0 (0-99); LIPEMIA HEMOLYSIS FLAG 70 (0-99); MEAN CELL HEMOGLOBIN 25.8 pg (27.9-34.1); MEAN CELL HEMOGLOBIN CONCENTR. 29.1 g/dL (32.4-36.7); MEAN CELL VOLUME 88.8 fL (81.5-99.8); MEAN PLATELET VOLUME 10.3 fL (8.7-11.7); PLATELET CLUMPS FLAG 10 (0-99); PLATELET COUNT 238 10^3/uL (150-400); RED BLOOD CELL COUNT 5.38 10^6/uL (4.40-6.38); RED CELL DISTRIBUTION WIDTH 16.2 % (11.5-15.2)
[2016-10-14 05:32] LABS: ANION GAP 8 mEq/L (8-16); CALCIUM 8.8 mg/dL (8.5-10.4); CARBON DIOXIDE 36 mEq/l (22-31); CHLORIDE 95 mEq/L (97-110); CREATININE 1.1 mg/dL (0.7-1.3); GLOMERULAR FILTRATION RATE > 60; GLUCOSE 94 mg/dL (70-100); POTASSIUM 5.6 mEq/L (3.5-5.2); SODIUM 139 mEq/L (134-144)
[2016-10-14] MEDS: FUROSEMIDE 40 MG/4 ML VIAL IVP SCH ×2 (09:12→15:32)
[2016-10-14] MEDS: ASPIRIN 81 MG CHEWABLE TAB PO SCH (09:12)
[2016-10-14] MEDS: ATORVASTATIN CALCIUM 40 MG TAB PO SCH (09:12)
[2016-10-14] MEDS: ENOXAPARIN 60 MG/0.6 ML SYR SC SCH ×2 (09:12→22:48)
[2016-10-14] MEDS: CARVEDILOL 25 MG TAB PO SCH ×3 (09:12→22:49)
[2016-10-14] MEDS: amLODIPine BESYLATE 5 MG TAB PO SCH (09:13)
[2016-10-14] MEDS ORDERED: FUROSEMIDE 20 MG/2 ML VIAL IVP ONE (11:10)
--- NOTE | 2016-10-14 11:14 | HOSPPROG ---
Hospitalist Progress Note Assessment/Plan: # acute decompensated diastolic CHF - likely has 10kg of water weight - incr lasix to 60 iv bid - cont coreg - follow daily wts, renal fxn, lytes # hyperK - hold aldactone, recheck at 1pm - if still elevated will give Kayexalate # chris on ckd - better, follow # rising bicarb - unclear if primary metabolic alkalosis or compensatory to respiratory acidosis - if continues to rise, check ABG # morbid obesity # berkley on cpap # chronic hypoxic resp failure - at baseline 2-3L O2 # htn - better here - coreg, clonidine, norvasc, hydralazine # CAD, elev trops - unlikely ACS per cards # ppm d/t AV block # FCFT # vte ppx - lovenox ## mod risk needing iv diuretics Subjective: sleeping in his chair, arousable; tells me he is not urinating very much Objective: Vital Signs Temp Pulse Resp BP Pulse Ox 36.8 C 80 17 126/89 H 98 10/14/16 08:05 10/14/16 08:05 10/14/16 08:05 10/14/16 08:05 10/14/16 08:05 Laboratory Results 10/14/16 03:55 10/14/16 03:55 10/13/16 10/14/16 10/15/16 05:59 05:59 06:59 Intake Total 450 Output Total 900 450 Balance -450 -450 PT 12.2 SEC (12.0-15.0) 10/12/16 02:15 INR 0.91 (0.83-1.16) 10/12/16 02:15 Vitals reviewed Pleasant, no acute distress; Obese Regular rate and rhythm, no murmurs rubs or gallops No respiratory distress, lungs clear to auscultation bilaterally, no wheezes or rales Abdomen soft nontender, nondistended, no hepatosplenomegaly ICD10 Worksheet Patient Problems: Problems Problem Status Onset CHF - Congestive heart failure Active Systolic dysfunction Active Hypoxemia Active Sleep apnea Active Nicotine dependence Active Malignant hypertension Active Nonischemic cardiomyopathy Acute Renal failure Acute Edema, peripheral Acute CHRIS (acute kidney injury) Acute CKD (chronic kidney disease) Acute Acute hypoxemic respiratory failure Acute Hypertensive urgency Acute Troponin level elevated Acute
[2016-10-14 13:31] LABS: ANION GAP 8 mEq/L (8-16); CALCIUM 8.6 mg/dL (8.5-10.4); CARBON DIOXIDE 36 mEq/l (22-31); CHLORIDE 94 mEq/L (97-110); CREATININE 1.2 mg/dL (0.7-1.3); GLOMERULAR FILTRATION RATE > 60; GLUCOSE 143 mg/dL (70-100); POTASSIUM 4.7 mEq/L (3.5-5.2); SODIUM 138 mEq/L (134-144)
[2016-10-15 06:19] LABS: ANION GAP 9 mEq/L (8-16); CALCIUM 8.5 mg/dL (8.5-10.4); CARBON DIOXIDE 35 mEq/l (22-31); CHLORIDE 92 mEq/L (97-110); CREATININE 1.2 mg/dL (0.7-1.3); GLOMERULAR FILTRATION RATE > 60; GLUCOSE 100 mg/dL (70-100); POTASSIUM 5.3 mEq/L (3.5-5.2); SODIUM 136 mEq/L (134-144)
[2016-10-15 06:23] LABS: % IMMATURE GRANULYOCYTES 0.7 % (0.0-1.1); ABSOLUTE IMMATURE GRANULOCYTES 0.08 10^3/uL (0.00-0.10); ADD DIFF? NO; ADD MORPH? NO; ADD SCAN? NO; ATYPICAL LYMPHOCYTE FLAG 10 (0-99); FRAGMENT RBC FLAG 0 (0-99); HEMATOCRIT 46.4 % (40.0-51.0); HEMOGLOBIN 13.5 g/dL (13.7-17.5); LEFT SHIFT FLG 0 (0-99); LIPEMIA HEMOLYSIS FLAG 70 (0-99); MEAN CELL HEMOGLOBIN 25.7 pg (27.9-34.1); MEAN CELL HEMOGLOBIN CONCENTR. 29.1 g/dL (32.4-36.7); MEAN CELL VOLUME 88.2 fL (81.5-99.8); MEAN PLATELET VOLUME 11.3 fL (8.7-11.7); PLATELET CLUMPS FLAG 0 (0-99); PLATELET COUNT 271 10^3/uL (150-400); RED BLOOD CELL COUNT 5.26 10^6/uL (4.40-6.38)
[2016-10-15] MEDS ORDERED: SODIUM POLY SULF 15 GM/60 ML BOTTLE PO ONE (07:55)
[2016-10-15] MEDS: FUROSEMIDE 40 MG/4 ML VIAL IVP SCH ×2 (08:41→15:56)
[2016-10-15] MEDS: ENOXAPARIN 60 MG/0.6 ML SYR SC SCH ×2 (08:41→21:14)
[2016-10-15] MEDS: ATORVASTATIN CALCIUM 40 MG TAB PO SCH (08:42)
[2016-10-15] MEDS: METOLAZONE 2.5 MG TAB PO SCH (08:42)
[2016-10-15] MEDS: amLODIPine BESYLATE 5 MG TAB PO SCH (08:44)
[2016-10-15] MEDS: ASPIRIN 81 MG CHEWABLE TAB PO SCH (08:44)
[2016-10-15] MEDS: CARVEDILOL 25 MG TAB PO SCH ×3 (08:44→21:14)
--- NOTE | 2016-10-15 08:48 | HOSPPROG ---
Hospitalist Progress Note Assessment/Plan: # acute decompensated diastolic and R sided CHF - edema and wt worse today - cont lasix 60 iv bid; add metolazone 2.5mg - cont coreg - follow daily wts, renal fxn, lytes # hyperK - cont to hold aldactone - kayexalate today - add metolazone - recheck at 1200 # chris on ckd - better, follow # elev bicarb - check ABG today # morbid obesity # berkley on cpap # chronic hypoxic resp failure - at baseline 2-3L O2 # htn - better here - coreg, clonidine, norvasc, hydralazine # CAD, elev trops - unlikely ACS per cards # ppm d/t AV block # FCFT # vte ppx - lovenox ## mod risk Subjective: urinating more overnight Objective: Vital Signs Temp Pulse Resp BP Pulse Ox 37.0 C 77 16 123/80 H 100 10/15/16 04:19 10/15/16 04:19 10/15/16 04:19 10/15/16 04:19 10/15/16 04:19 Laboratory Results 10/15/16 04:14 10/15/16 04:14 10/14/16 10/15/16 10/16/16 04:59 05:59 05:59 Intake Total Output Total 1500 Balance -1500 PT 12.2 SEC (12.0-15.0) 10/12/16 02:15 INR 0.91 (0.83-1.16) 10/12/16 02:15 - Physical Exam Constitutional: no apparent distress, appears nourished, obese Cardiovascular: regular rate and rhythym, no murmur, rub, or gallop Respiratory: no respiratory distress, no rales or rhonchi, clear to auscultation , other (faint breath sounds) Gastrointestinal: normoactive bowel sounds, soft, non-tender abdomen, no palpable masses ICD10 Worksheet Patient Problems: Problems Problem Status Onset CHF - Congestive heart failure Active Systolic dysfunction Active Hypoxemia Active Sleep apnea Active Nicotine dependence Active Malignant hypertension Active Nonischemic cardiomyopathy Acute Renal failure Acute Edema, peripheral Acute CHRIS (acute kidney injury) Acute CKD (chronic kidney disease) Acute Acute hypoxemic respiratory failure Acute Hypertensive urgency Acute Troponin level elevated Acute
[2016-10-15 12:53] LABS: ANION GAP 8 mEq/L (8-16); CALCIUM 8.5 mg/dL (8.5-10.4); CARBON DIOXIDE 36 mEq/l (22-31); CHLORIDE 91 mEq/L (97-110); CREATININE 1.1 mg/dL (0.7-1.3); GLOMERULAR FILTRATION RATE > 60; GLUCOSE 93 mg/dL (70-100); POTASSIUM 4.3 mEq/L (3.5-5.2); SODIUM 135 mEq/L (134-144)
[2016-10-15 15:19] LABS: BASE EXCESS 9.4 mEq/L (-2.5-2.5); BICARBONATE 40 mEq/L (22-26); MEASURED OXYGEN SATURATION 99 % (92-95); PO2 129 mmHg (65-75)
[2016-10-15 15:22] LABS: TCO2 43 mEq/L (23-27)
[2016-10-15 15:26] LABS: PCO2 91 mmHg (34-38)
[2016-10-16 06:42] LABS: BASE EXCESS 14.2 mEq/L (-2.5-2.5); BICARBONATE 43 mEq/L (22-26); MEASURED OXYGEN SATURATION 98 % (92-95); PO2 118 mmHg (65-75)
[2016-10-16 06:52] LABS: PCO2 75 mmHg (34-38)
[2016-10-16 06:53] LABS: TCO2 45 mEq/L (23-27)
[2016-10-16 08:37] LABS: CALCIUM 8.8 mg/dL (8.5-10.4); CHLORIDE 86 mEq/L (97-110); CREATININE 0.9 mg/dL (0.7-1.3); GLOMERULAR FILTRATION RATE > 60; GLUCOSE 100 mg/dL (70-100); POTASSIUM 3.8 mEq/L (3.5-5.2); SODIUM 137 mEq/L (134-144)
[2016-10-16 08:51] LABS: ANION GAP 11 mEq/L (8-16)
[2016-10-16 09:06] LABS: CARBON DIOXIDE 43 mEq/l (22-31)
--- NOTE | 2016-10-16 09:16 | HOSPPROG ---
Hospitalist Progress Note Assessment/Plan: # cor pulmonale/acute decompensated diastolic and R sided CHF - better today with metolazone - cont lasix 60 iv bid, metolazone 2.5mg - cont coreg - follow daily wts, renal fxn, lytes - may need K supplementation with metolazone # OHS with chronic hypercapnic resp failure - needs to use bipap - will work with CM/RT to find a mask he tolerates # hyperK - occurred on aldactone - add metolazone # chris on ckd - better, follow # morbid obesity # berkley on cpap # chronic hypoxic resp failure - at baseline 2-3L O2 # htn - better here - coreg, clonidine, norvasc, hydralazine # CAD, elev trops - unlikely ACS per cards # ppm d/t AV block # FCFT # vte ppx - lovenox ## high risk given the severe degree of his resp failure Subjective: feels like he urinated better yesterday Objective: Vital Signs Temp Pulse Resp BP Pulse Ox 36.4 C 75 18 145/90 H 96 10/16/16 08:03 10/16/16 08:03 10/16/16 08:03 10/16/16 08:03 10/16/16 08:03 Laboratory Results 10/15/16 04:14 10/16/16 08:05 10/15/16 10/16/16 10/17/16 05:59 05:59 05:59 Intake Total 2550 200 Output Total 5500 1100 Balance -2950 -900 PT 12.2 SEC (12.0-15.0) 10/12/16 02:15 INR 0.91 (0.83-1.16) 10/12/16 02:15 - Physical Exam Cardiovascular: regular rate and rhythym, no murmur, rub, or gallop Respiratory: no respiratory distress, no rales or rhonchi, clear to auscultation Gastrointestinal: normoactive bowel sounds, soft, non-tender abdomen, no palpable masses ICD10 Worksheet Patient Problems: Problems Problem Status Onset CHF - Congestive heart failure Active Systolic dysfunction Active Hypoxemia Active Sleep apnea Active Nicotine dependence Active Malignant hypertension Active Nonischemic cardiomyopathy Acute Renal failure Acute Edema, peripheral Acute CHRIS (acute kidney injury) Acute CKD (chronic kidney disease) Acute Acute hypoxemic respiratory failure Acute Hypertensive urgency Acute Troponin level elevated Acute
[2016-10-16] MEDS: amLODIPine BESYLATE 5 MG TAB PO SCH (09:20)
[2016-10-16] MEDS: ATORVASTATIN CALCIUM 40 MG TAB PO SCH (09:20)
[2016-10-16] MEDS: METOLAZONE 2.5 MG TAB PO SCH (09:20)
[2016-10-16] MEDS: ASPIRIN 81 MG CHEWABLE TAB PO SCH (09:20)
[2016-10-16] MEDS: CARVEDILOL 25 MG TAB PO SCH ×3 (09:22→22:00)
[2016-10-16] MEDS: ENOXAPARIN 60 MG/0.6 ML SYR SC SCH ×2 (09:22→20:20)
[2016-10-16] MEDS: FUROSEMIDE 40 MG/4 ML VIAL IVP SCH ×2 (09:25→15:53)
[2016-10-17 06:57] LABS: ANION GAP 13 mEq/L (8-16); CALCIUM 9.4 mg/dL (8.5-10.4); CARBON DIOXIDE 37 mEq/l (22-31); CHLORIDE 86 mEq/L (97-110); GLOMERULAR FILTRATION RATE > 60; GLUCOSE 84 mg/dL (70-100); POTASSIUM 3.8 mEq/L (3.5-5.2); SODIUM 136 mEq/L (134-144)
[2016-10-17] MEDS: ATORVASTATIN CALCIUM 40 MG TAB PO SCH (09:35)
[2016-10-17] MEDS: METOLAZONE 2.5 MG TAB PO SCH (09:35)
[2016-10-17] MEDS: FUROSEMIDE 40 MG/4 ML VIAL IVP SCH ×2 (09:36→16:20)
[2016-10-17] MEDS: ASPIRIN 81 MG CHEWABLE TAB PO SCH (09:36)
[2016-10-17] MEDS: amLODIPine BESYLATE 5 MG TAB PO SCH (09:36)
[2016-10-17] MEDS: ENOXAPARIN 60 MG/0.6 ML SYR SC SCH ×2 (09:36→20:35)
[2016-10-17] MEDS: CARVEDILOL 25 MG TAB PO SCH ×3 (09:36→22:50)
--- NOTE | 2016-10-17 14:48 | WOCRNPDOC ---
WOCRN Advanced Assessment Note - Skin Integrity Problem, Advanced Assess Bilateral Groin Dermatitis Dressing Type: Interdry Dressing Description: Clean/Dry Integumentary Issue Intervention: Visualized Under Dressing Skin Integrity Problem Comment: Improved since last assessment. There continues to be erythema w/ mild denudement along base of fold, but site is healing. Continue w/ Interdry sheets in folds to manage moisture and friction. Bilateral Pannus Dermatitis Dressing Type: Interdry Dressing Description: Clean/Dry Exudate Amount: None Exudate Characteristic(s): None Skin Integrity Problem Comment: Mild, mirrored erythema on both top and bottom of pannus where the skin touches, w/ scattered satellite lesions, improved since last assessment. Continue w/ Interdry sheets. Checked patient's supply, and he still has 4 additional sheets to use. mold dumper Shana present and assisting.
--- NOTE | 2016-10-17 15:39 | HOSPPROG ---
Hospitalist Progress Note Assessment/Plan: # cor pulmonale/acute decompensated diastolic and R sided CHF - better today with metolazone - cont lasix 60 iv bid, metolazone 2.5mg - cont coreg - follow daily wts, renal fxn, lytes - may need K supplementation with metolazone * watch CO2 # OHS with chronic hypercapnic resp failure - needs to use bipap - will work with CM/RT to find a mask he tolerates * pacer mediated tachycardia * will have cards take a look at tomorrow # hyperK - occurred on aldactone - add metolazone # chris on ckd - better, follow # morbid obesity # berkley on cpap # chronic hypoxic resp failure - at baseline 2-3L O2 # htn - better here - coreg, clonidine, norvasc, hydralazine # CAD, elev trops - unlikely ACS per cards # ppm d/t AV block # FCFT # vte ppx - lovenox Subjective: is frustrated about his social situation. Objective: Vital Signs Temp Pulse Resp BP Pulse Ox 36.3 C 73 16 145/89 H 96 10/17/16 15:11 10/17/16 15:11 10/17/16 15:11 10/17/16 15:11 10/17/16 15:11 Laboratory Results 10/15/16 04:14 10/17/16 06:00 10/16/16 10/17/16 10/18/16 05:59 05:59 05:59 Intake Total 2550 1560 360 Output Total 5500 5625 2450 Balance -2950 -4065 -2090 PT 12.2 SEC (12.0-15.0) 10/12/16 02:15 INR 0.91 (0.83-1.16) 10/12/16 02:15 tele personally reviewed interpreted probable pacer mediated tachycardia - Physical Exam Constitutional: no apparent distress, appears nourished, not in pain Eyes: anicteric sclera, EOMI Ears, Nose, Mouth, Throat: moist mucous membranes, hearing normal, ears appear normal Cardiovascular: regular rate and rhythym, no murmur, rub, or gallop, edema ( 3+ ) Respiratory: no respiratory distress, no rales or rhonchi, clear to auscultation Gastrointestinal: normoactive bowel sounds, soft, non-tender abdomen, no palpable masses Skin: warm Neurologic: AAOx3 Psychiatric: interacting appropriately, not anxious, not encephalopathic, thought process linear ICD10 Worksheet Patient Problems: Problems Problem Status Onset Hypertensive urgency Acute Troponin level elevated Acute CHF - Congestive heart failure Active Hypoxemia Active Malignant hypertension Active Nicotine dependence Active Sleep apnea Active Systolic dysfunction Active CHRIS (acute kidney injury) Acute Acute hypoxemic respiratory failure Acute CKD (chronic kidney disease) Acute Edema, peripheral Acute Nonischemic cardiomyopathy Acute Renal failure Acute
[2016-10-17] MEDS: OXYCODONE/APAP 5/325 TAB PO PRN (22:50)
[2016-10-17] MEDS: LORazepam 0.5 MG TAB PO PRN (22:51)
[2016-10-18 05:31] LABS: CALCIUM 9.3 mg/dL (8.5-10.4); CHLORIDE 79 mEq/L (97-110); GLOMERULAR FILTRATION RATE > 60; GLUCOSE 94 mg/dL (70-100); POTASSIUM 3.3 mEq/L (3.5-5.2); SODIUM 133 mEq/L (134-144)
[2016-10-18 05:46] LABS: ANION GAP 13 mEq/L (8-16)
[2016-10-18 05:47] LABS: CARBON DIOXIDE 41 mEq/l (22-31)
[2016-10-18] MEDS: ENOXAPARIN 60 MG/0.6 ML SYR SC SCH ×2 (08:29→21:47)
[2016-10-18] MEDS: FUROSEMIDE 40 MG/4 ML VIAL IVP SCH ×2 (08:29→16:24)
[2016-10-18] MEDS: amLODIPine BESYLATE 5 MG TAB PO SCH (08:29)
[2016-10-18] MEDS: METOLAZONE 2.5 MG TAB PO SCH (08:29)
[2016-10-18] MEDS: ATORVASTATIN CALCIUM 40 MG TAB PO SCH (08:29)
[2016-10-18] MEDS: ASPIRIN 81 MG CHEWABLE TAB PO SCH (08:29)
[2016-10-18] MEDS ORDERED: POTASSIUM CL 20 MEQ TAB PO ONE (08:41)
--- NOTE | 2016-10-18 09:17 | HOSPPROG ---
Hospitalist Progress Note Assessment/Plan: # cor pulmonale/acute decompensated diastolic and R sided CHF - better today with metolazone - cont lasix 60 iv bid, hold metolazone up today's dose because of increasing CO2 * will add Diamox today - cont coreg - follow daily wts, renal fxn, lytes - may need K supplementation with metolazone * watch CO2 # OHS with chronic hypercapnic resp failure - needs to use bipap - will work with CM/RT to find a mask he tolerates * pacer mediated tachycardia * will have cards take a look # hyperK - occurred on aldactone - add metolazone * replace potassium cautiously # chris - resolved # morbid obesity # berkley on cpap # chronic hypoxic resp failure - at baseline 2-3L O2 # htn - better here - coreg, clonidine, norvasc, hydralazine # CAD, elev trops - unlikely ACS per cards # ppm d/t AV block # FCFT # vte ppx - lovenox # patient is high risk Subjective: No new complaints although has been having some mild visual disturbances at times Objective: Vital Signs Temp Pulse Resp BP Pulse Ox 36.6 C 91 14 126/84 H 90 L 10/18/16 07:22 10/18/16 09:09 10/18/16 09:00 10/18/16 07:22 10/18/16 09:12 Laboratory Results 10/15/16 04:14 10/18/16 04:38 10/17/16 10/18/16 10/19/16 05:59 05:59 05:59 Intake Total 1560 1780 Output Total 5625 4200 650 Balance -4065 -2420 -650 PT 12.2 SEC (12.0-15.0) 10/12/16 02:15 INR 0.91 (0.83-1.16) 10/12/16 02:15 tele personally viewed interpreted normal sinus rhythm - Physical Exam Constitutional: no apparent distress, appears nourished, not in pain Eyes: anicteric sclera, EOMI Ears, Nose, Mouth, Throat: moist mucous membranes, hearing normal, ears appear normal Cardiovascular: regular rate and rhythym, no murmur, rub, or gallop, edema ( 2+ . Seems to be improving) Respiratory: no respiratory distress, no rales or rhonchi, clear to auscultation , reduced air movement Gastrointestinal: normoactive bowel sounds, soft, non-tender abdomen, no palpable masses Skin: warm Neurologic: AAOx3 Psychiatric: interacting appropriately, not anxious, not encephalopathic, thought process linear ICD10 Worksheet Patient Problems: Problems Problem Status Onset Hypertensive urgency Acute Troponin level elevated Acute CHF - Congestive heart failure Active Hypoxemia Active Malignant hypertension Active Nicotine dependence Active Sleep apnea Active Systolic dysfunction Active CHRIS (acute kidney injury) Acute Acute hypoxemic respiratory failure Acute CKD (chronic kidney disease) Acute Edema, peripheral Acute Nonischemic cardiomyopathy Acute Renal failure Acute
[2016-10-18] MEDS: CARVEDILOL 25 MG TAB PO SCH ×3 (09:51→21:47)
[2016-10-18] MEDS: acetaZOLAMIDE 250 MG TAB PO SCH ×2 (09:53→21:47)
[2016-10-18] MEDS: LORazepam 0.5 MG TAB PO PRN (12:58)
[2016-10-18 21:46] LABS: BICARBONATE 45 mEq/L (22-26); MEASURED OXYGEN SATURATION 94 % (92-95); PO2 79 mmHg (65-75)
[2016-10-18 21:49] LABS: PCO2 85 mmHg (34-38); TCO2 48 mEq/L (23-27)
--- NOTE | 2016-10-18 21:56 | CPEKG ---
Heart Rate: 74 RR Interval: 811 P-R Interval: 228 QRSD Interval: 104 QT Interval: 440 QTC Interval: 489 P [place]: 31 QRS [place]: -6 T Wave [place]: 170 EKG Severity - ABNORMAL ECG - EKG Impression: SINUS RHYTHM EKG Impression: FIRST DEGREE AV BLOCK EKG Impression: LEFT ATRIAL ABNORMALITY EKG Impression: LVH WITH SECONDARY REPOLARIZATION ABNORMALITY EKG Impression: ABNORMAL T, PROBABLE ISCHEMIA, LATERAL LEADS EKG Impression: BORDERLINE PROLONGED QT INTERVAL EKG Impression: FIRST DEGREE AVB IS NEW IN COMPARISON TO PRIOR EKG Impression: ST/T WAVE CHANGES ARE MORE PRONOUNCED IN THIS ECG IN COMPARISON TO PRIOR Electronically Signed By: Santy Cam 19-Oct-2016 16:44:54
--- NOTE | 2016-10-18 23:15 | HOSPPROG ---
Hospitalist Progress Note Assessment/Plan: I was called to bedside by RN approx 21:00 for somnolence and confusion. RN had to sternal rub to wake patient. PE: SBP 150s, HR 80s Gen: obese, sitting in chair, somnolent, answering my questions CV: RRR Lung: CTA, BL Gi: obese, +BS [place]: 5/5 UE, LE strength Neuro: 2-12 intact, normal sensation to touch Psych: slow to answer questions, alert to self, date, not place Plan: 1. Acute encephalopathy: suspect hypercarbia since he refused CPAP earlier. Check stat ABG, EKG, trop. Glucose 122 Critical care time spent: 30min with pt bedside, reviewing progress notes, and labs Objective: Vital Signs Temp Pulse Resp BP Pulse Ox 37.1 C 84 29 H 153/79 H 92 10/18/16 20:00 10/18/16 21:47 10/18/16 20:00 10/18/16 21:47 10/18/16 20:00 Laboratory Results 10/15/16 04:14 10/18/16 04:38 10/17/16 10/18/16 10/19/16 05:59 05:59 05:59 Intake Total 1560 1780 1190 Output Total 5625 4200 3200 [facility] -4065 -2420 PT 12.2 SEC (12.0-15.0) 10/12/16 02:15 INR 0.91 (0.83-1.16) 10/12/16 02:15 ICD10 Worksheet Patient Problems: Problems Problem Status Onset Hypertensive urgency Acute Troponin level elevated Acute CHF - Congestive heart failure Active Hypoxemia Active Malignant hypertension Active Nicotine dependence Active Sleep apnea Active Systolic dysfunction Active CHRIS (acute kidney injury) Acute Acute hypoxemic respiratory failure Acute CKD (chronic kidney disease) Acute Edema, peripheral Acute Nonischemic cardiomyopathy Acute Renal failure Acute
[2016-10-19 05:41] LABS: CALCIUM 9.1 mg/dL (8.5-10.4); CHLORIDE 80 mEq/L (97-110); CREATININE 1.4 mg/dL (0.7-1.3); GLOMERULAR FILTRATION RATE 57; GLUCOSE 82 mg/dL (70-100); MAGNESIUM 2.2 mg/dL (1.6-2.3); POTASSIUM 3.2 mEq/L (3.5-5.2); SODIUM 135 mEq/L (134-144)
[2016-10-19 05:49] LABS: ANION GAP 13 mEq/L (8-16)
[2016-10-19 05:51] LABS: CARBON DIOXIDE 42 mEq/l (22-31)
[2016-10-19] MEDS: CARVEDILOL 25 MG TAB PO SCH ×3 (08:12→22:05)
[2016-10-19] MEDS: ATORVASTATIN CALCIUM 40 MG TAB PO SCH (08:13)
[2016-10-19] MEDS: acetaZOLAMIDE 250 MG TAB PO SCH ×2 (08:13→20:32)
[2016-10-19] MEDS: ENOXAPARIN 60 MG/0.6 ML SYR SC SCH ×2 (08:14→20:32)
[2016-10-19] MEDS: ASPIRIN 81 MG CHEWABLE TAB PO SCH (08:14)
[2016-10-19] MEDS: amLODIPine BESYLATE 5 MG TAB PO SCH (08:14)
[2016-10-19] MEDS: FUROSEMIDE 40 MG/4 ML VIAL IVP SCH (08:14)
--- NOTE | 2016-10-19 09:18 | HOSPPROG ---
Hospitalist Progress Note Assessment/Plan: # cor pulmonale/acute decompensated diastolic and R sided CHF - * holding diuretics as creatinine and CO2 arising * continue Diamox today - cont coreg - follow daily wts, renal fxn, lytes - may need K supplementation with metolazone * watch CO2 * obtundation last night * probably related to not using CPAP * ABG showed severe hypercapnia but no acidosis - personally interpreted # OHS with chronic hypercapnic resp failure - needs to use bipap - will work with CM/RT to find a mask he tolerates * pacer mediated tachycardia * cardiology abrahan to monitor # hyperK - occurred on aldactone - add metolazone * replace potassium cautiously # chris - resolved # morbid obesity # berkley on cpap # chronic hypoxic resp failure - at baseline 2-3L O2 # htn - better here - coreg, clonidine, norvasc, hydralazine # CAD, elev trops - unlikely ACS per cards # ppm d/t AV block # FCFT # vte ppx - lovenox # patient is high risk Subjective: Events of last night reviewed. Patient does not really remember this. No new complaints this morning. Denies chest pain Objective: Vital Signs Temp Pulse Resp BP Pulse Ox 36.7 C 73 18 120/67 90 L 10/19/16 07:33 10/19/16 07:33 10/19/16 07:33 10/19/16 07:33 10/19/16 07:33 Laboratory Results 10/15/16 04:14 10/19/16 03:54 10/18/16 10/19/16 10/20/16 05:59 05:59 05:59 Intake Total 1780 1700 Output Total 4200 4800 425 Balance -2420 -3100 -425 PT 12.2 SEC (12.0-15.0) 10/12/16 02:15 INR 0.91 (0.83-1.16) 10/12/16 02:[address] leyva - Physical Exam Constitutional: no apparent distress, appears nourished, not in pain Eyes: anicteric sclera, EOMI Ears, Nose, Mouth, Throat: moist mucous membranes, hearing normal, ears appear normal Cardiovascular: regular rate and rhythym, no murmur, rub, or gallop, edema ( improving edema) Respiratory: no respiratory distress, no rales or rhonchi, clear to auscultation Gastrointestinal: normoactive bowel sounds, soft, non-tender abdomen, no palpable masses Skin: warm Neurologic: AAOx3 Psychiatric: interacting appropriately, not anxious, not encephalopathic, thought process linear ICD10 Worksheet Patient Problems: Problems Problem Status Onset Hypertensive urgency Acute Troponin level elevated Acute CHF - Congestive heart failure Active Hypoxemia Active Malignant hypertension Active Nicotine dependence Active Sleep apnea Active Systolic dysfunction Active CHRIS (acute kidney injury) Acute Acute hypoxemic respiratory failure Acute CKD (chronic kidney disease) Acute Edema, peripheral Acute Nonischemic cardiomyopathy Acute Renal failure Acute
[2016-10-19 09:20] LABS: TROPONIN I 0.655 ng/mL (0-0.034)
[2016-10-19] MEDS ORDERED: POTASSIUM CL 20 MEQ TAB PO ONE (09:45)
[2016-10-19] MEDS ORDERED: BACITRACIN OINTMENT 1 PACKET TP ONE (13:00)
[2016-10-19] MEDS: OXYCODONE/APAP 5/325 TAB PO PRN (13:21)
[2016-10-20 05:12] LABS: CHLORIDE 85 mEq/L (97-110); CREATININE 1.5 mg/dL (0.7-1.3); GLOMERULAR FILTRATION RATE 52; GLUCOSE 86 mg/dL (70-100); POTASSIUM 3.4 mEq/L (3.5-5.2); SODIUM 136 mEq/L (134-144)
[2016-10-20 05:20] LABS: ANION GAP 10 mEq/L (8-16)
[2016-10-20 05:21] LABS: CARBON DIOXIDE 41 mEq/l (22-31)
[2016-10-20] MEDS ORDERED: POTASSIUM CL 20 MEQ TAB PO ONE (09:22)
[2016-10-20] MEDS: ASPIRIN 81 MG CHEWABLE TAB PO SCH (09:52)
[2016-10-20] MEDS: amLODIPine BESYLATE 5 MG TAB PO SCH (09:52)
[2016-10-20] MEDS: ATORVASTATIN CALCIUM 40 MG TAB PO SCH (09:52)
[2016-10-20] MEDS: acetaZOLAMIDE 250 MG TAB PO SCH ×2 (09:53→21:40)
[2016-10-20] MEDS: CARVEDILOL 25 MG TAB PO SCH ×3 (09:53→21:40)
[2016-10-20] MEDS: ENOXAPARIN 60 MG/0.6 ML SYR SC SCH ×2 (09:54→21:40)
--- NOTE | 2016-10-20 10:53 | HOSPPROG ---
Hospitalist Progress Note Assessment/Plan: # cor pulmonale/acute decompensated diastolic and R sided CHF - * holding diuretics as creatinine and CO2 arising * continue Diamox today - cont coreg - follow daily wts, renal fxn, lytes - may need K supplementation with metolazone * watch CO2 * may restart oral diuretics tomorrow # OHS with chronic hypercapnic resp failure - needs to use bipap - will work with CM/RT to find a mask he tolerates * pacer mediated tachycardia * cardiology abrahan to monitor # hyperK - occurred on aldactone - add metolazone * replace potassium cautiously # chris - resolved # morbid obesity # berkley on cpap # chronic hypoxic resp failure - at baseline 2-3L O2 # htn - better here - coreg, clonidine, norvasc, hydralazine # CAD, elev trops - unlikely ACS per cards # ppm d/t AV block # FCFT # vte ppx - lovenox # patient is high risk Subjective: no new complaints Objective: Vital Signs Temp Pulse Resp BP Pulse Ox 36.8 C 74 19 129/63 H 95 10/20/16 07:18 10/20/16 07:18 10/20/16 07:18 10/20/16 07:18 10/20/16 07:18 Laboratory Results 10/15/16 04:14 10/20/16 03:24 10/19/16 10/20/16 10/21/16 05:59 05:59 05:59 Intake Total 1700 1910 690 Output Total 4800 3075 300 Balance -3100 -1165 390 PT 12.2 SEC (12.0-15.0) 10/12/16 02:15 INR 0.91 (0.83-1.16) 10/12/16 02:15 - Physical Exam Constitutional: no apparent distress, appears nourished, not in pain Eyes: anicteric sclera, EOMI Ears, Nose, Mouth, Throat: moist mucous membranes, hearing normal, ears appear normal Cardiovascular: regular rate and rhythym, no murmur, rub, or gallop, edema ( 2+ but soft) Respiratory: no respiratory distress, no rales or rhonchi, clear to auscultation Gastrointestinal: normoactive bowel sounds, soft, non-tender abdomen, no palpable masses Skin: warm Neurologic: AAOx3 Psychiatric: interacting appropriately, not anxious, not encephalopathic, thought process linear ICD10 Worksheet Patient Problems: Problems Problem Status Onset Hypertensive urgency Acute Troponin level elevated Acute CHF - Congestive heart failure Active Hypoxemia Active Malignant hypertension Active Nicotine dependence Active Sleep apnea Active Systolic dysfunction Active CHRIS (acute kidney injury) Acute Acute hypoxemic respiratory failure Acute CKD (chronic kidney disease) Acute Edema, peripheral Acute Nonischemic cardiomyopathy Acute Renal failure Acute
[2016-10-20] MEDS: OXYCODONE/APAP 5/325 TAB PO PRN (16:17)
[2016-10-21 04:50] LABS: ANION GAP 12 mEq/L (8-16); CALCIUM 9.1 mg/dL (8.5-10.4); CARBON DIOXIDE 36 mEq/l (22-31); CHLORIDE 90 mEq/L (97-110); CREATININE 1.3 mg/dL (0.7-1.3); GLOMERULAR FILTRATION RATE > 60; GLUCOSE 135 mg/dL (70-100); POTASSIUM 3.2 mEq/L (3.5-5.2); SODIUM 138 mEq/L (134-144)
[2016-10-21] MEDS: acetaZOLAMIDE 250 MG TAB PO SCH (08:05)
[2016-10-21] MEDS: ENOXAPARIN 60 MG/0.6 ML SYR SC SCH ×2 (08:06→20:51)
[2016-10-21] MEDS: CARVEDILOL 25 MG TAB PO SCH ×3 (08:06→20:51)
[2016-10-21] MEDS: ATORVASTATIN CALCIUM 40 MG TAB PO SCH (08:06)
[2016-10-21] MEDS: ASPIRIN 81 MG CHEWABLE TAB PO SCH (08:06)
[2016-10-21] MEDS: amLODIPine BESYLATE 5 MG TAB PO SCH (08:06)
[2016-10-21] MEDS: POTASSIUM CL 20 MEQ TAB PO SCH (10:29)
[2016-10-21] MEDS: TORSEMIDE 20 MG TAB PO SCH ×2 (10:29→20:56)
[2016-10-21] MEDS: SPIRONOLACTONE 25 MG TAB PO SCH (10:29)
[2016-10-21] MEDS ORDERED: POTASSIUM CL 20 MEQ TAB PO ONE (13:51)
--- NOTE | 2016-10-21 13:56 | HOSPPROG ---
Hospitalist Progress Note Assessment/Plan: 36-year-old male with a history cardiomyopathy, BERKLEY, morbid obesity presented with hypoxia # cor pulmonale/acute decompensated diastolic and R sided CHF - * restart oral diuretics today. This was stopped for a few days due to rising creatinine and CO2. We did give him a few days of Diamox to reduce CO2. * Will restart diuretics at home dosage # OHS with chronic hypercapnic resp failure - needs to use bipap - will work with CM/RT to find a mask he tolerates * pacer mediated tachycardia * cardiology said to monitor # hyperK - occurred on aldactone * replace potassium cautiously * has been consistently low lately # troponin leak * troponin was checked when patient was quite somnolent, hypoxic * probably element of demand ischemia * troponin has come down # chris - resolved # morbid obesity # berkley on cpap # chronic hypoxic resp failure - at baseline 2-3L O2 # htn - better here - coreg, clonidine, norvasc, hydralazine # CAD, elev trops - unlikely ACS per cards # ppm d/t AV block # FCFT # vte ppx - lovenox # disposition - we were attempting to get him in to fpc facility. However he absolutely needs to go home and get his belongings from his evicted apartment and will probably leave tomorrow. Subjective: feels well. No new complaints. Edema is better. No chest pain Objective: Vital Signs Temp Pulse Resp BP Pulse Ox 36.6 C 70 19 110/62 92 10/21/16 12:53 10/21/16 12:53 10/21/16 12:53 10/21/16 12:53 10/21/16 12:53 Laboratory Results 10/15/16 04:14 10/21/16 03:43 10/20/16 10/21/16 10/22/16 05:59 05:59 05:59 Intake Total 1910 1470 960 Output Total 3075 1300 500 Balance -1165 170 460 PT 12.2 SEC (12.0-15.0) 10/12/16 02:15 INR 0.91 (0.83-1.16) 10/12/16 02:15 - Physical Exam Constitutional: no apparent distress, appears nourished, not in pain Eyes: anicteric sclera, EOMI Ears, Nose, Mouth, Throat: moist mucous membranes, hearing normal, ears appear normal Cardiovascular: regular rate and rhythym, no murmur, rub, or gallop, edema ( 2+) Respiratory: no respiratory distress, no rales or rhonchi, clear to auscultation Gastrointestinal: normoactive bowel sounds, soft, non-tender abdomen, no palpable masses Skin: warm Neurologic: AAOx3 Psychiatric: interacting appropriately, not anxious, not encephalopathic, thought process linear ICD10 Worksheet Patient Problems: Problems Problem Status Onset Hypertensive urgency Acute Troponin level elevated Acute CHF - Congestive heart failure Active Hypoxemia Active Malignant hypertension Active Nicotine dependence Active Sleep apnea Active Systolic dysfunction Active CHRIS (acute kidney injury) Acute Acute hypoxemic respiratory failure Acute CKD (chronic kidney disease) Acute Edema, peripheral Acute Nonischemic cardiomyopathy Acute Renal failure Acute
[2016-10-22 05:25] LABS: ANION GAP 13 mEq/L (8-16); CARBON DIOXIDE 34 mEq/l (22-31); CHLORIDE 93 mEq/L (97-110); CREATININE 1.4 mg/dL (0.7-1.3); GLOMERULAR FILTRATION RATE 57; GLUCOSE 85 mg/dL (70-100); MAGNESIUM 2.2 mg/dL (1.6-2.3); POTASSIUM 3.5 mEq/L (3.5-5.2); SODIUM 140 mEq/L (134-144)
[2016-10-22] MEDS: SPIRONOLACTONE 25 MG TAB PO SCH (08:37)
[2016-10-22] MEDS: ATORVASTATIN CALCIUM 40 MG TAB PO SCH (08:38)
[2016-10-22] MEDS: CARVEDILOL 25 MG TAB PO SCH ×2 (08:38→15:41)
[2016-10-22] MEDS: POTASSIUM CL 20 MEQ TAB PO SCH (08:38)
[2016-10-22] MEDS: ASPIRIN 81 MG CHEWABLE TAB PO SCH (08:38)
[2016-10-22] MEDS: amLODIPine BESYLATE 5 MG TAB PO SCH (08:38)
[2016-10-22] MEDS: ENOXAPARIN 60 MG/0.6 ML SYR SC SCH (08:39)
[2016-10-22] MEDS: TORSEMIDE 20 MG TAB PO SCH (08:41)
[2016-10-22 13:53] VITALS: BP 120/68; PULSE 78; RESP 20; TEMP 98.1; O2SAT 96
--- NOTE | 2016-10-22 16:28 | GDS ---
[f rep st] DISCHARGE SUMMARY KNOWN ACUTE DIAGNOSES ON THIS ADMISSION: 1. Acute decompensated diastolic right-sided congestive heart failure. 2. Cor pulmonale. 3. Obstructive sleep apnea syndrome with chronic hypercapnic respiratory failure. The patient must use BiPAP and has CPAP and mask at home. 4. Hyperkalemia occurred while on Aldactone, b.i.d. basis. 5. Hypokalemia during this hospitalization. We gingerly replaced his potassium, is now normal. 6. Troponin leak, likely secondary to cardiac demand. It is now declining. 7. Acute kidney injury, which has resolved. 8. Morbid obesity. 9. Chronic hypoxic respiratory failure and hypercapnic respiratory failure. He is at a baseline of 2-3 L/minute. 10. Hypertension, here well controlled on Coreg, clonidine, Norvasc, and hydralazine. 11. Coronary artery disease with elevated troponins. There was no evidence of acute coronary syndr ome. 12. Wound care to the inguinal region. CHRONIC DIAGNOSIS: He has a permanent pacemaker placed. CONSULTATION: Cardiology. PROCEDURES: None. HOSPITAL COURSE: This is a 36-year-old male with chronic respiratory failure, obstructive sleep credit coordinator ea, and a history of cardiomyopathy, who presented hypoxic and short of breath. He was found to be hyperkalemic with acute kidney injury, mild dehydration, and acute hypoxic and hypercapnic respirato ry failure. He was treated with mild diuretic therapy, fluid replacement initially, cautious potass ium replacement while he was hypokalemic, and has now resolved the kidney injury, the electrolyte di sorder, and he is near or at his baseline respiratory function. The patient desires to return home. It is clear he will have difficulty managing his home matters and arrangements have been made for placement in a long-term care facility. During this hospitalization the gentleman diuresed over 10 kg. LABORATORIES: Of note, at the time of discharge WBC 12,000, hemoglobin 13.5. Chemistry panel showe d sodium 140, potassium 3.5, chloride 93, CO2 34, BUN of 34, creatinine 1.4. He is felt to be at hi s baseline renal function. DISCHARGE MEDICATIONS: Aldactone 25 mg daily, Demadex 50 mg b.i.d., hydralazine 100 mg b.i.d., Lipi tor 40 mg daily, Carvedilol 50 mg b.i.d. , Clonidine 0.1 mg b.i.d., metformin 1000 mg b.i.d., Norvas c 5 mg daily, ASA 81 mg daily. PLAN: The gentleman will return home to home care. Arrangements have been made for him to transfer from home to the [facility]-term care facility. When he is able, the gentleman is to contact Caitlyn bernardo at [facility] to arrange for admission. This discharge required 55 minutes, greater than 50% to drapery counselor and coordinate care. /[id number]/MODL
== END 2016-10-22 15:53 | disposition home or self-care (01) | DRG 291 ==
LOC: EDUNIT# → INTOOBSV 10-12 02:29 → F2W 10-12 14:25 → OBSVTOIN 10-13 15:38
PROVIDERS: ADMIT Internal Medicine; ATTEND Internal Medicine
DX: I50.31 Acute diastolic (congestive) heart failure (principal); J96.21 Acute and chronic respiratory failure with hypoxia; J96.22 Acute and chronic respiratory failure with hypercapnia; N17.9 Acute kidney failure, unspecified; I13.0 Hypertensive heart and chronic kidney disease with heart failure and stage 1 through stage 4 chronic kidney disease, or unspecified chronic kidney disease; I27.81 Cor pulmonale (chronic); G47.33 Obstructive sleep apnea (adult) (pediatric); E87.5 Hyperkalemia; E87.6 Hypokalemia; E66.01 Morbid (severe) obesity due to excess calories; I25.10 Atherosclerotic heart disease of native coronary artery without angina pectoris; J44.9 Chronic obstructive pulmonary disease, unspecified; N18.9 Chronic kidney disease, unspecified; R73.03 Prediabetes; Z87.891 Personal history of nicotine dependence; Z99.81 Dependence on supplemental oxygen; Z95.810 Presence of automatic (implantable) cardiac defibrillator
CPT/HCPCS: 96374; 97110-GP; 97112-GP; 97116-GP; 97163-GP; 97165-GO; 97530-GP; 97535-GO; J0360; J1650; Q9957

== ENCOUNTER 2016-11-01 18:38 | Inpatient (IN) | payer MEDICAID ==
[2016-11-01] MEDS ORDERED: NITROGLYCERIN 2% 1 GM PACKET TP ONE (19:26)
[2016-11-01] MEDS ORDERED: FUROSEMIDE 40 MG/4 ML VIAL IVP ONE (19:26)
--- NOTE | 2016-11-01 19:32 | EDPHY ---
H & P Stated Complaint: SOB, exacerbation of CHF and COPD Time Seen by Provider: 11/01/16 19:14 HPI/ROS: CHIEF COMPLAINT: Shortness of breath HISTORY OF PRESENT ILLNESS: The patient is a 36-year-old 390 lb man with a history of congestive heart failure, cor pulmonale, COPD, obstructive sleep apnea, hypertension who comes to the emergency department complaining of increased shortness of breath, weight gain and lower extremity edema. He was admitted here 2 weeks ago for the same and diuresed but had to leave prematurely. He states that he had to leave because he is roommate were being evicted from their home and his roommate is "really big over 800 lb " and at [facility]. He states the last time he was here they diuresed him down to about 350 lb but he thinks he has gained back. He has been taking his spironolactone and Demadex and hydralazine and Norvasc and carvedilol and clonidine but states that they are not working. He has not had a fever. He denies any chest pain. He denies any abdominal pain nausea vomiting. REVIEW OF SYSTEMS: Constitutional: denies: chills, fever, recent illness, recent injury EENTM: denies: blurred vision, double vision, nose congestion Respiratory: See HPI Cardiac: denies: chest pain, irregular heart rate, lightheadedness, palpitations Gastrointestinal/Abdominal: denies: abdominal pain, diarrhea, nausea, vomiting, blood streaked stools Genitourinary: denies: dysuria, frequency, hematuria, pain Musculoskeletal: denies: joint pain, muscle pain Skin: denies: lesions, rash, jaundice, bruising Neurological: denies: headache, numbness, paresthesia, tingling, dizziness, weakness Hematologic/Lymphatic: denies: blood clots, easy bleeding, easy bruising Immunologic/allergic: denies: HIV/AIDS, transplant EXAM: GENERAL: Well-appearing, well-nourished and in no acute distress. HEAD: Atraumatic, normocephalic. EYES: Pupils equal round and reactive to light, extraocular movements intact, sclera anicteric, conjunctiva are normal. ENT: TMs normal, nares patent, oropharynx clear without exudates. Moist mucous membranes. NECK: Normal range of motion, supple without lymphadenopathy or JVD. LUNGS: Bilateral x-ray crackles, distant breath sounds HEART: Regular rate and rhythm without murmurs, rubs or gallops. ABDOMEN: Soft, nontender, normoactive bowel sounds. No guarding, no rebound. No masses appreciated. BACK: No CVA tenderness, no spinal tenderness, step-offs or deformities EXTREMITIES: Normal range of motion, no pitting or edema. No clubbing or cyanosis. NEUROLOGICAL: Cranial nerves II through XII grossly intact. Normal speech, normal gait. 5/5 strength, normal movement in all extremities, normal sensation PSYCH: Normal mood, normal affect. SKIN: Warm, dry, normal turgor, no visible rashes or lesions. Source: Patient Exam Limitations: No limitations - Personal History Current Tetanus Diphtheria and Acellular Pertussis (TDAP): Yes Tetanus Vaccine Date: CURRENT - Medical/Surgical History Hx Asthma: No Hx Chronic Respiratory Disease: Yes Hx Diabetes: No Hx Cardiac Disease: Yes Hx Renal Disease: Yes Hx Cirrhosis: No Hx Alcoholism: No Hx HIV/AIDS: No Hx Splenectomy or Spleen Trauma: No Other PMH: PMH: chf; htn; stage 2 kidney dis; copd, pre-diabetic. PSH: pacemaker - Family History Significant Family History: No pertinent family hx - Social History Smoking Status: Former smoker Alcohol Use: Sober Drug Use: None Constitutional: Initial Vital Signs Temperature (C) 36.6 C 11/01/16 18:41 Heart Rate 116 H 11/01/16 18:41 Respiratory Rate 24 H 11/01/16 18:41 Blood Pressure 211/146 H 11/01/16 18:41 O2 Sat (%) 94 11/01/16 18:41 O2 Delivery Mode Room Air Allergies/Adverse Reactions: No Known Allergies Allergy (Verified 11/01/16 18:40) Home Medications: Medication Instructions Recorded Aspirin [Aspirin 81mg (*)] 81 mg PO DAILY 10/12/16 Atorvastatin Calcium [Lipitor 40 40 mg PO DAILY 10/12/16 mg (*)] Carvedilol [Coreg (*)] 50 mg PO BIDMEAL 10/12/16 Hydralazine HCl 100 mg PO BIDMEAL 10/12/16 Metformin HCl [Metformin 1000 mg] 1,000 mg PO BIDMEAL 10/12/16 amLODIPine BESYLATE [Norvasc 5 mg 5 mg PO DAILY 10/12/16 (*)] clonIDINE [Catapres (*)] 0.1 mg PO BID 10/12/16 Spironolactone [Aldactone 25 MG 25 mg PO DAILY #30 tab 10/22/16 (*)] Torsemide [Demadex] 50 mg PO BIDDIUR 2 Days 10/22/16 Medical Decision Making - Diagnostics EKG Interpretation: An EKG obtained and was read and documented in trace view. Please see trace view for full reading and report. Sinus tachycardia with LVH similar to previous Imaging: X-ray: chest x-ray was obtained. I viewed the images myself on the PACS system. My interpretation of the images is: Pulmonary edema. The radiologist interpretation is pulmonary edema cardiomegaly, no pneumonia. ED Course/Re-evaluation: 8:00 p.m. we discussed the patient's x-ray results. There has been some delay in obtaining an IV and lab work. 8:20 p.m. I discussed the case with Dr GREGORY Wu who will admit to the PCU. Started Lasix and nitroglycerin paste. The patient's blood pressure is down to 150 systolic. Differential Diagnosis: Partial list of the Differential diagnosis considered include but were not limited to; CHF, COPD, acute coronary disease and although unlikely based on the history and physical exam, I also considered PE, pneumonia. Critical Care Time: Critical care time spent by me, Dr. Yanes exclusive with this patient was 35 minutes, exclusive of the PA time exclusive of procedures. The organ system that was at risk was cardiac and I gave Lasix and nitroglycerin and consultation to prevent worsening of the patient's condition - Data Points Laboratory Results: Laboratory Results 11/01/16 19:55 11/01/16 19:55 11/01/16 11/01/16 19:55 19:55 WBC 15.03 10^3/uL H 10^3/uL (3.80-9.50) RBC 5.47 10^6/uL 10^6/uL (4.40-6.38) Hgb 14.5 g/dL g/dL (13.7-17.5) Hct 45.5 % % (40.0-51.0) MCV 83.2 fL fL (81.5-99.8) MCH 26.5 pg L pg (27.9-34.1) MCHC 31.9 g/dL L g/dL (32.4-36.7) RDW 16.7 % H % (11.5-15.2) Plt Count 336 10^3/uL 10^3/uL (150-400) MPV 10.0 fL fL (8.7-11.7) Neut % (Auto) 77.8 % H % (39.3-74.2) Lymph % (Auto) 13.4 % L % (15.0-45.0) [place] % (Auto) 6.8 % % (4.5-13.0) Eos % (Auto) 1.4 % % (0.6-7.6) Baso % (Auto) 0.3 % % (0.3-1.7) Nucleat RBC Rel Count 0.0 % % (0.0-0.2) Absolute Neuts (auto) 11.69 10^3/uL H 10^3/uL (1.70-6.50) Absolute Lymphs (auto) 2.02 10^3/uL 10^3/uL (1.00-3.00) Absolute Monos (auto) 1.02 10^3/uL H 10^3/uL (0.30-0.80) Absolute Eos (auto) 0.21 10^3/uL 10^3/uL (0.03-0.40) Absolute Basos (auto) 0.04 10^3/uL 10^3/uL (0.02-0.10) Absolute Nucleated RBC 0.00 10^3/uL 10^3/uL (0-0.01) Immature Gran % 0.3 % % (0.0-1.1) Immature Gran # 0.05 10^3/uL 10^3/uL (0.00-0.10) Sodium 141 mEq/L mEq/L (134-144) Potassium 4.4 mEq/L mEq/L (3.5-5.2) Chloride 104 mEq/L mEq/L (97-110) Carbon Dioxide 27 mEq/l mEq/l (22-31) Anion Gap 10 mEq/L mEq/L (8-16) BUN 18 mg/dL mg/dL (7-23) Creatinine 1.3 mg/dL mg/dL (0.7-1.3) Estimated GFR > 60 Glucose 120 mg/dL H mg/dL (70-100) Calcium 9.3 mg/dL mg/dL (8.5-10.4) Troponin I 0.020 ng/mL ng/mL (0-0.034) NT-Pro-B Natriuret Pep 1570 pg/mL H pg/mL (0-125) Medications Given: Discontinued Medications Furosemide (Lasix Injection) 40 mg IVP EDNOW ONE Stop: 11/01/16 19:27 Last Admin: 11/01/16 20:19 Dose: 40 mg Nitroglycerin (Nitro-Bid 2%) 1 inch TP EDNOW ONE Stop: 11/01/16 19:27 Last Admin: 11/01/16 20:19 Dose: 1 inch Departure - Departure Disposition: [facility] Inpatient Acute Clinical Impression: CHF - Congestive heart failure Condition: Fair
--- NOTE | 2016-11-01 20:04 | CPEKG ---
Heart Rate: 105 RR Interval: 571 P-R Interval: 180 QRSD Interval: 80 QT Interval: 356 QTC Interval: 471 P Mary [place]: 47 QRS Mary [place]: 4 T Wave Mary [place]: 147 EKG Severity - ABNORMAL ECG - EKG Impression: SINUS TACHYCARDIA EKG Impression: LVH WITH SECONDARY REPOLARIZATION ABNORMALITY EKG Impression: similar to previous Electronically Signed By: Misha Yanes 01-Nov-2016 20:10:35
[2016-11-01 20:05] LABS: % IMMATURE GRANULYOCYTES 0.3 % (0.0-1.1); ABSOLUTE IMMATURE GRANULOCYTES 0.05 10^3/uL (0.00-0.10); ADD DIFF? NO; ADD MORPH? NO; ADD SCAN? NO; ATYPICAL LYMPHOCYTE FLAG 0 (0-99); FRAGMENT RBC FLAG 0 (0-99); HEMATOCRIT 45.5 % (40.0-51.0); HEMOGLOBIN 14.5 g/dL (13.7-17.5); LEFT SHIFT FLG 0 (0-99); LIPEMIA HEMOLYSIS FLAG 80 (0-99); MEAN CELL HEMOGLOBIN 26.5 pg (27.9-34.1); MEAN CELL HEMOGLOBIN CONCENTR. 31.9 g/dL (32.4-36.7); MEAN CELL VOLUME 83.2 fL (81.5-99.8); PLATELET CLUMPS FLAG 0 (0-99); PLATELET COUNT 336 10^3/uL (150-400); RED BLOOD CELL COUNT 5.47 10^6/uL (4.40-6.38); RED CELL DISTRIBUTION WIDTH 16.7 % (11.5-15.2)
[2016-11-01 20:17] LABS: ANION GAP 10 mEq/L (8-16); CALCIUM 9.3 mg/dL (8.5-10.4); CARBON DIOXIDE 27 mEq/l (22-31); CHLORIDE 104 mEq/L (97-110); CREATININE 1.3 mg/dL (0.7-1.3); GLOMERULAR FILTRATION RATE > 60; GLUCOSE 120 mg/dL (70-100); POTASSIUM 4.4 mEq/L (3.5-5.2); SODIUM 141 mEq/L (134-144)
[2016-11-01] MEDS ORDERED: ONDANSETRON 4 MG/2 ML VIAL IVP PRN (20:17)
[2016-11-01] MEDS ORDERED: ONDANSETRON DISINTEGRATING 4 MG TAB PO PRN (20:17)
[2016-11-01] MEDS ORDERED: ACETAMINOPHEN 325 MG TAB PO PRN (20:17)
[2016-11-01] MEDS ORDERED: D50W 25 GM/50 ML SYR IVP PRN (20:22)
--- NOTE | 2016-11-01 21:28 | GHP ---
[f rep st] HISTORY AND PHYSICAL DATE OF ADMISSION: 11/01/2016 CHIEF COMPLAINT: Shortness of breath and swelling. HISTORY OF PRESENT ILLNESS: A 36-year-old male with a history of severe chronic diastolic heart julianoangus hampton who presents with worsening chronic lower extremity edema and shortness of breath. The patient was last admitted on 10/12/2016 and diuresed until he discharged early from the hospital on 017 secondary to being evicted. The patient reports taking all of his medications since disposition and has continued to have progressive weight gain, severe shortness of breath even at rest, and mar ked swelling of his ankles. The patient denies any chest pain. Reports chronic back pain. Denies any changes in his bowel habits, any dysuria, any blood in his stool or urine. Denies any sick cont acts, recent fevers, vision changes or dysphagia. He currently does not have a safe place to live a nd has been unable to use his home CPAP for an extended period of time. PAST MEDICAL HISTORY: 1. Chronic diastolic heart failure. 2. Morbid obesity. 3. Cor pulmonale. 4. Obstructive sleep apnea with chronic hypercapnic respiratory failure. 5. Chronic hypoxic respiratory failure requiring 2-3 L. 6. Hypertension. 7. Non flow limiting coronary artery disease. 8. Chronic inguinal wound and umbilical wound. SOCIAL HISTORY: Currently homeless. Denies tobacco, alcohol, or illicit drugs. FAMILY HISTORY: Positive for heart disease. REVIEW OF SYSTEMS: A 10-point review of systems is negative with the exception of that reported in the HPI. PHYSICAL EXAMINATION: VITAL SIGNS: Blood pressure is 173/111, heart rate 110, respiratory rate 24, saturating 93% on 5 L, 36.6. GENERAL: This is a morbidly obese-appearing male, in no acute distre ss. HEENT: Notable for dry mucous membranes. Eye exam is negative for any icterus. CARDIAC: Pat ient is tachycardic but regular. PULMONARY: Diminished breath sounds at bilateral bases. MUSCULOS KELETAL: 2+ symmetric lower extremity edema. NEUROLOGIC: The patient is alert and oriented x3. P SYCHIATRIC: He is pleasant and cooperative on interview and examination. DATA: Chest x-ray, which I personally reviewed and interpreted, shows hypoventilation with volume o verload. EKG shows sinus tachycardia with no acute ST-T changes. ASSESSMENT AND PLAN: This is a 36-year-old male presenting with shortness of breath. 1. Acute on chronic diastolic heart failure. The patient is overloaded on chest x-ray with lower e xtremity edema. We will control the patient's blood pressure and actively diurese. No need for rep eat echocardiography as the patient has had one performed on his last hospitalization. We will init iate IV Lasix and strict I's and O's. Cardiology will be consulted to follow along. 2. Uncontrolled hypertension. Again, we will work aggressively to control the patient's blood pres sures with his home medications titrated as needed. 3. Morbid obesity. This is certainly central to many of his complaints. Ongoing discussion relati ng to this in the future. 4. Obstructive sleep apnea. Patient reports not tolerating his CPAP well. We will reorder and att empt better mask fitting. 5. Inguinal wound. We will ask Wound Care to reassess and resume care. 6. Prophylaxis with Lovenox. DIET: Cardiac. DISPOSITION: I expect greater than 2 midnights as patient is requiring IV diuretics for heart failu re control. I have discussed the case with the emergency room physician. Patient will be triaged t o the PCU for care. /[id number]/MODL
[2016-11-01] MEDS: ENOXAPARIN 40 MG/0.4 ML SYR SC SCH (22:32)
[2016-11-02 04:36] LABS: % IMMATURE GRANULYOCYTES 0.8 % (0.0-1.1); ABSOLUTE IMMATURE GRANULOCYTES 0.11 10^3/uL (0.00-0.10); ADD DIFF? NO; ADD MORPH? NO; ADD SCAN? NO; ATYPICAL LYMPHOCYTE FLAG 10 (0-99); FRAGMENT RBC FLAG 0 (0-99); HEMATOCRIT 46.2 % (40.0-51.0); HEMOGLOBIN 14.2 g/dL (13.7-17.5); LEFT SHIFT FLG 0 (0-99); LIPEMIA HEMOLYSIS FLAG 80 (0-99); MEAN CELL HEMOGLOBIN 26.2 pg (27.9-34.1); MEAN CELL HEMOGLOBIN CONCENTR. 30.7 g/dL (32.4-36.7); MEAN CELL VOLUME 85.1 fL (81.5-99.8); MEAN PLATELET VOLUME 10.1 fL (8.7-11.7); PLATELET CLUMPS FLAG 0 (0-99); PLATELET COUNT 316 10^3/uL (150-400); RED BLOOD CELL COUNT 5.43 10^6/uL (4.40-6.38); RED CELL DISTRIBUTION WIDTH 16.4 % (11.5-15.2)
[2016-11-02 04:52] LABS: CARBON DIOXIDE 24 mEq/l (22-31); CHLORIDE 103 mEq/L (97-110); CREATININE 1.2 mg/dL (0.7-1.3); GLOMERULAR FILTRATION RATE > 60; GLUCOSE 109 mg/dL (70-100); SODIUM 140 mEq/L (134-144)
[2016-11-02 05:36] LABS: ANION GAP 13 mEq/L (8-16); POTASSIUM 4.7 mEq/L (3.5-5.2)
[2016-11-02] MEDS ORDERED: INSULIN LISPRO 100 UNIT/ML SC SCH (08:00)
[2016-11-02] MEDS: SPIRONOLACTONE 25 MG TAB PO SCH (08:43)
[2016-11-02] MEDS: ASPIRIN 81 MG CHEWABLE TAB PO SCH (08:44)
[2016-11-02] MEDS: CARVEDILOL 25 MG TAB PO SCH ×2 (08:44→18:28)
[2016-11-02] MEDS: amLODIPine BESYLATE 5 MG TAB PO SCH (08:44)
[2016-11-02] MEDS: ATORVASTATIN CALCIUM 20 MG TAB PO SCH (08:44)
[2016-11-02] MEDS: metFORMIN HCL 500 MG TAB PO SCH ×2 (08:44→18:28)
[2016-11-02] MEDS: FUROSEMIDE 40 MG/4 ML VIAL IVP SCH ×2 (08:45→15:47)
[2016-11-02] MEDS: ENOXAPARIN 40 MG/0.4 ML SYR SC SCH ×2 (08:45→21:02)
[2016-11-02] MEDS ORDERED: ENOXAPARIN 40 MG/0.4 ML SYR SC SCH (09:00)
--- NOTE | 2016-11-02 10:54 | WOCRNPDOC ---
WOCRN Advanced Assessment Note - Skin Integrity Problem, Advanced Assess Pannus Dressing Type: Open to Air Site Odor: Very Strong, Musky Site Odor Comment: yeast Skin Integrity Problem Comment: Various erythematic fungal areas in groin, pannus, inguinal areas. Pillowcases inbetween folds with antifungal powder. Please reconsult if things worsen. Wound care will not follow.
--- NOTE | 2016-11-02 16:56 | HOSPPROG ---
Hospitalist Progress Note Assessment/Plan: DIAGNOSES: -Acute respiratory failure -Acute cor pulmonale exacerbation/acute right-sided heart failure -ongoing chronic skin wounds at the inguinal and abdominal area from intertriginous friction and pressure -morbid obesity -chronic respiratory failure with home oxygen use -chronic obstructive sleep apnea PLANS: -continue diuretics -Continue aggressive pulmonary care -increased physical activity as he is able -diet and weight loss counseling -wound care with wound care nurse consultation in place SUBJECTIVE: Feels about the same as yesterday, perhaps slightly less short of breath OBJECTIVE Vitals reviewed: Some hypertension during the night but better during the day so far Shower Attendant, my review: Sinus rhythm Exam: alert oriented Quite obese skin warm dry color ok resps mildly labored at rest on oxygen lungs severely diminished but clear BSs heart regular, quiet systolic murmur heard without concerning characteristics abd soft nondistended nontender, bowel sounds present limbs warm, no edema iv site ok Objective: Vital Signs Temp Pulse Resp BP Pulse Ox 36.5 C 76 16 145/109 H 90 L 11/02/16 16:24 11/02/16 16:24 11/02/16 16:24 11/02/16 16:24 11/02/16 16:24 Laboratory Results 11/02/16 04:15 11/02/16 04:15 11/01/16 11/02/16 11/03/16 06:59 06:59 06:59 Intake Total 560 1140 Output Total 425 Balance 135 1140 ICD10 Worksheet Patient Problems: Problems Problem Status Onset CHF - Congestive heart failure Acute Hypoxemia Active Malignant hypertension Active Nicotine dependence Active Sleep apnea Active Systolic dysfunction Active CHRIS (acute kidney injury) Acute Acute hypoxemic respiratory failure Acute CKD (chronic kidney disease) Acute Edema, peripheral Acute Hypertensive urgency Acute Nonischemic cardiomyopathy Acute Renal failure Acute Troponin level elevated Acute
[2016-11-02] MEDS: OXYCODONE/APAP 5/325 TAB PO SCH (21:03)
[2016-11-03] MEDS: ENOXAPARIN 40 MG/0.4 ML SYR SC SCH ×2 (08:31→21:32)
[2016-11-03] MEDS: FUROSEMIDE 40 MG/4 ML VIAL IVP SCH ×2 (08:31→15:11)
[2016-11-03] MEDS: metFORMIN HCL 500 MG TAB PO SCH ×2 (08:31→18:06)
[2016-11-03] MEDS: CARVEDILOL 25 MG TAB PO SCH ×2 (08:32→18:06)
[2016-11-03] MEDS: SPIRONOLACTONE 25 MG TAB PO SCH (08:32)
[2016-11-03] MEDS: ASPIRIN 81 MG CHEWABLE TAB PO SCH (08:33)
[2016-11-03] MEDS: ATORVASTATIN CALCIUM 20 MG TAB PO SCH (08:33)
[2016-11-03] MEDS: amLODIPine BESYLATE 5 MG TAB PO SCH (08:33)
--- NOTE | 2016-11-03 16:44 | HOSPPROG ---
Hospitalist Progress Note Assessment/Plan: DIAGNOSES: -Acute respiratory failure -Acute cor pulmonale exacerbation/acute right-sided heart failure, bilateral leg edema -ongoing chronic skin wounds at the inguinal and abdominal area from intertriginous friction and pressure -morbid obesity -chronic respiratory failure with home oxygen use -chronic obstructive sleep apnea PLANS: -continue diuretics -Continue aggressive pulmonary care -increased physical activity as he is able -diet and weight loss counseling -wound care with wound care nurse consultation in place SUBJECTIVE: legs still swollen and sore breathing a bit easier today OBJECTIVE Vitals reviewed: Some hypertension during the night but better during the day so far Executive Steward, my review: Sinus rhythm Exam: alert oriented Quite obese skin warm dry color ok resps mildly labored at rest on oxygen lungs severely diminished but clear BSs heart regular, quiet systolic murmur heard without concerning characteristics abd soft nondistended nontender, bowel sounds present limbs warm, extensive edema unchanged iv site ok Objective: Vital Signs Temp Pulse Resp BP Pulse Ox 36.9 C 84 20 165/93 H 92 11/03/16 15:32 11/03/16 15:32 11/03/16 15:32 11/03/16 15:32 11/03/16 15:32 Laboratory Results 11/02/16 04:15 11/02/16 04:15 11/02/16 11/03/16 11/04/16 06:59 06:59 06:59 Intake Total 560 2080 Output Total 425 1700 Balance 135 380 ICD10 Worksheet Patient Problems: Problems Problem Status Onset CHF - Congestive heart failure Acute Hypoxemia Active Malignant hypertension Active Nicotine dependence Active Sleep apnea Active Systolic dysfunction Active CHRIS (acute kidney injury) Acute Acute hypoxemic respiratory failure Acute CKD (chronic kidney disease) Acute Edema, peripheral Acute Hypertensive urgency Acute Nonischemic cardiomyopathy Acute Renal failure Acute Troponin level elevated Acute
[2016-11-03] MEDS: OXYCODONE/APAP 5/325 TAB PO SCH (21:30)
[2016-11-04] MEDS: ENOXAPARIN 40 MG/0.4 ML SYR SC SCH ×2 (09:04→21:11)
[2016-11-04] MEDS: metFORMIN HCL 500 MG TAB PO SCH ×2 (09:05→18:21)
[2016-11-04] MEDS: SPIRONOLACTONE 25 MG TAB PO SCH (09:05)
[2016-11-04] MEDS: ATORVASTATIN CALCIUM 20 MG TAB PO SCH (09:05)
[2016-11-04] MEDS: amLODIPine BESYLATE 5 MG TAB PO SCH (09:05)
[2016-11-04] MEDS: ASPIRIN 81 MG CHEWABLE TAB PO SCH (09:06)
[2016-11-04] MEDS: FUROSEMIDE 40 MG/4 ML VIAL IVP SCH (09:06)
[2016-11-04] MEDS: CARVEDILOL 25 MG TAB PO SCH ×2 (09:06→18:21)
[2016-11-04] MEDS ORDERED: FUROSEMIDE 40 MG/4 ML VIAL IVP SCH (11:18)
--- NOTE | 2016-11-04 11:23 | HOSPPROG ---
Hospitalist Progress Note Assessment/Plan: 36-year-old morbidly obese man comes in with acute right-sided heart failure and anasarca. He was recently admitted here in early October for diuresis on discharge she unfortunately lost all of his medications was homeless and gained significant amount of weight. # acute cor pulmonale exacerbation/acute right-sided heart failure with anasarca and acute respiratory failure. Likely etiologies include morbid obesity and obstructive sleep apnea. * Increase Lasix to 80 mg twice daily and add metolazone and continue Aldactone * Daily weights * Monitor and replace electrolytes as needed. * Telemetry reviewed, patient sinus rhythm # Morbid obesity discussed weight loss # chronic respiratory failure typically on oxygen at home # obstructive sleep apnea. Patient lost his CPAP machine several months ago and has not been using anything. # homelessness, patient plans on staying at a snf facility post hospitalization. # chronic skin wounds at the inguinal and abdominal area, wound care. Continue wound care # hypertension, patient on numerous medications will continue and monitor D Subjective: Patient new to or, chart reviewed. Continues to have significant fluid and has gained kg since admission. No significant complaints of chest pain is short of breath which is chronic Objective: Vital Signs Temp Pulse Resp BP Pulse Ox 36.6 C 66 14 154/88 H 94 11/04/16 08:00 11/04/16 09:06 11/04/16 08:00 11/04/16 09:06 11/04/16 08:00 Laboratory Results 11/02/16 04:15 11/02/16 04:15 11/03/16 11/04/16 11/05/16 05:59 05:59 05:59 Intake Total 2080 1400 Output Total 1700 3300 Balance 380 -1900 - Physical Exam Constitutional: not in pain, obese, uncomfortable Eyes: PERRL, anicteric sclera, EOMI Ears, Nose, Mouth, Throat: ears appear normal, dry mucous membranes Cardiovascular: regular rate and rhythym, systolic murmur, edema Respiratory: no respiratory distress, no rales or rhonchi, clear to auscultation , reduced air movement Gastrointestinal: normoactive bowel sounds, soft, non-tender abdomen Genitourinary: no bladder fullness Skin: warm, normal color Musculoskeletal: normal joint ROM, no joint effusions Neurologic: AAOx3, No facial droop Psychiatric: interacting appropriately, not anxious, not encephalopathic ICD10 Worksheet Patient Problems: Problems Problem Status Onset CHF - Congestive heart failure Acute Hypoxemia Active Malignant hypertension Active Nicotine dependence Active Sleep apnea Active Systolic dysfunction Active CHIRS (acute kidney injury) Acute Acute hypoxemic respiratory failure Acute CKD (chronic kidney disease) Acute Edema, peripheral Acute Hypertensive urgency Acute Nonischemic cardiomyopathy Acute Renal failure Acute Troponin level elevated Acute
[2016-11-04 13:17] LABS: ANION GAP 10 mEq/L (8-16); CALCIUM 9.1 mg/dL (8.5-10.4); CARBON DIOXIDE 33 mEq/l (22-31); CHLORIDE 96 mEq/L (97-110); CREATININE 1.1 mg/dL (0.7-1.3); GLOMERULAR FILTRATION RATE > 60; GLUCOSE 86 mg/dL (70-100); POTASSIUM 5.1 mEq/L (3.5-5.2); SODIUM 139 mEq/L (134-144)
[2016-11-04] MEDS: METOLAZONE 2.5 MG TAB PO SCH (16:03)
[2016-11-04] MEDS: FUROSEMIDE 80 MG in D5W 50 ML IV SCH (16:04)
[2016-11-04] MEDS: OXYCODONE/APAP 5/325 TAB PO SCH (21:11)
[2016-11-05 05:05] LABS: ANION GAP 10 mEq/L (8-16); CALCIUM 9.3 mg/dL (8.5-10.4); CARBON DIOXIDE 35 mEq/l (22-31); CHLORIDE 92 mEq/L (97-110); CREATININE 1.4 mg/dL (0.7-1.3); GLOMERULAR FILTRATION RATE 57; GLUCOSE 85 mg/dL (70-100); MAGNESIUM 1.9 mg/dL (1.6-2.3); POTASSIUM 5.1 mEq/L (3.5-5.2); SODIUM 137 mEq/L (134-144)
[2016-11-05] MEDS: FUROSEMIDE 80 MG in D5W 50 ML IV SCH ×3 (08:00→16:51)
[2016-11-05] MEDS: ENOXAPARIN 40 MG/0.4 ML SYR SC SCH ×2 (08:00→21:45)
[2016-11-05] MEDS: metFORMIN HCL 500 MG TAB PO SCH ×2 (08:00→17:46)
[2016-11-05] MEDS: METOLAZONE 2.5 MG TAB PO SCH (08:02)
[2016-11-05] MEDS: amLODIPine BESYLATE 5 MG TAB PO SCH (08:03)
[2016-11-05] MEDS: ATORVASTATIN CALCIUM 20 MG TAB PO SCH (08:03)
[2016-11-05] MEDS: ASPIRIN 81 MG CHEWABLE TAB PO SCH (08:03)
[2016-11-05] MEDS: CARVEDILOL 25 MG TAB PO SCH ×2 (08:03→17:46)
[2016-11-05] MEDS: SPIRONOLACTONE 25 MG TAB PO SCH (08:04)
--- NOTE | 2016-11-05 13:00 | HOSPPROG ---
Hospitalist Progress Note Assessment/Plan: 36-year-old morbidly obese man comes in with acute right-sided heart failure and anasarca. He was recently admitted here in early October for diuresis on discharge she unfortunately lost all of his medications was homeless and gained significant amount of weight. # acute cor pulmonale exacerbation/acute right-sided heart failure with anasarca and acute respiratory failure. Likely etiologies include morbid obesity and obstructive sleep apnea. After increased dose of Lasix, his creatinine did bump up to 1.4. This appears to be baseline for him at his dry weight his creatinine is typically 1.4-1.5 he still is significantly fluid overloaded. * Continue Lasix at 80 mg twice daily and continue metolazone and continue Aldactone. If CO2 continues to rise could add Diamox and stop the metolazone * Daily weights * Monitor and replace electrolytes as needed. * Telemetry reviewed, patient sinus rhythm # Morbid obesity discussed weight loss # chronic respiratory failure typically on oxygen at home # obstructive sleep apnea. Patient lost his CPAP machine several months ago and has not been using anything. # homelessness, patient plans on staying at a intermediate facility post hospitalization. # chronic skin wounds at the inguinal and abdominal area, wound care. Continue wound care # hypertension, patient on numerous medications will continue and monitor D Subjective: Feels like he is urinating a lot more over the last 24 hours no chest pain cough chest shortness of breath Objective: Vital Signs Temp Pulse Resp BP Pulse Ox 36.6 C 80 16 140/78 H 95 11/05/16 12:00 11/05/16 12:00 11/05/16 12:00 11/05/16 12:00 11/05/16 12:00 Laboratory Results 11/02/16 04:15 11/05/16 04:04 11/04/16 11/05/16 11/06/16 05:59 05:59 05:59 Intake Total 1400 800 Output Total 3300 2800 Balance -1899 - Physical Exam Constitutional: obese Eyes: PERRL Cardiovascular: regular rate and rhythym Respiratory: no respiratory distress, no rales or rhonchi, reduced air movement Neurologic: AAOx3 Psychiatric: interacting appropriately, not anxious, not encephalopathic ICD10 Worksheet Patient Problems: Problems Problem Status Onset CHF - Congestive heart failure Acute Systolic dysfunction Active Hypoxemia Active Sleep apnea Active Nicotine dependence Active Malignant hypertension Active Nonischemic cardiomyopathy Acute Renal failure Acute Edema, peripheral Acute CHRIS (acute kidney injury) Acute CKD (chronic kidney disease) Acute Acute hypoxemic respiratory failure Acute Hypertensive urgency Acute Troponin level elevated Acute
[2016-11-05] MEDS: OXYCODONE/APAP 5/325 TAB PO SCH (21:45)
[2016-11-06 05:41] LABS: ANION GAP 16 mEq/L (8-16); CALCIUM 9.6 mg/dL (8.5-10.4); CARBON DIOXIDE 29 mEq/l (22-31); CHLORIDE 90 mEq/L (97-110); CREATININE 1.4 mg/dL (0.7-1.3); GLOMERULAR FILTRATION RATE 57; GLUCOSE 95 mg/dL (70-100); MAGNESIUM 1.8 mg/dL (1.6-2.3); POTASSIUM 4.9 mEq/L (3.5-5.2); SODIUM 135 mEq/L (134-144)
[2016-11-06] MEDS: ATORVASTATIN CALCIUM 20 MG TAB PO SCH (09:19)
[2016-11-06] MEDS: amLODIPine BESYLATE 5 MG TAB PO SCH (09:19)
[2016-11-06] MEDS: metFORMIN HCL 500 MG TAB PO SCH ×2 (09:19→17:50)
[2016-11-06] MEDS: METOLAZONE 2.5 MG TAB PO SCH (09:19)
[2016-11-06] MEDS: SPIRONOLACTONE 25 MG TAB PO SCH (09:20)
[2016-11-06] MEDS: CARVEDILOL 25 MG TAB PO SCH ×2 (09:20→17:50)
[2016-11-06] MEDS: ASPIRIN 81 MG CHEWABLE TAB PO SCH (09:20)
[2016-11-06] MEDS: ENOXAPARIN 40 MG/0.4 ML SYR SC SCH ×2 (09:20→20:21)
[2016-11-06] MEDS: FUROSEMIDE 80 MG in D5W 50 ML IV SCH ×2 (11:14→16:57)
--- NOTE | 2016-11-06 12:35 | HOSPPROG ---
Hospitalist Progress Note Assessment/Plan: 36-year-old morbidly obese man comes in with acute right-sided heart failure and anasarca. He was recently admitted here in early October for diuresis on discharge she unfortunately lost all of his medications was homeless and gained significant amount of weight. # acute cor pulmonale exacerbation/acute right-sided heart failure with anasarca and acute respiratory failure. Likely etiologies include morbid obesity and obstructive sleep apnea. After increased dose of Lasix, his creatinine did bump up to 1.4. This appears to be baseline for him at his dry weight his creatinine is typically 1.4-1.5 he still is significantly fluid overloaded. * Continue Lasix at 80 mg twice daily and continue metolazone and continue Aldactone. If CO2 continues to rise could add Diamox and stop the metolazone * Daily weights * Monitor and replace electrolytes as needed. * Telemetry reviewed, patient sinus rhythm # Morbid obesity discussed weight loss # chronic respiratory failure typically on oxygen at home # obstructive sleep apnea. Patient lost his CPAP machine several months ago and has not been using anything. # homelessness, patient plans on staying at a halfway facility post hospitalization. # chronic skin wounds at the inguinal and abdominal area, wound care. Continue wound care # hypertension, patient on numerous medications will continue and monitor D Subjective: Ambulating today. Still quite fluid long. Objective: Vital Signs Temp Pulse Resp BP Pulse Ox 36.6 C 78 16 155/112 H 96 11/06/16 08:00 11/06/16 08:00 11/06/16 08:00 11/06/16 08:00 11/06/16 08:00 Laboratory Results 11/02/16 04:15 11/06/16 04:00 11/05/16 11/06/16 11/07/16 05:59 05:59 05:59 Intake Total 800 1840 Output Total 2800 6780 750 Balance -1999 -0320 -750 - Physical Exam Constitutional: obese Cardiovascular: regular rate and rhythym, no murmur, rub, or gallop, edema Respiratory: no respiratory distress, reduced air movement Neurologic: AAOx3 Psychiatric: interacting appropriately ICD10 Worksheet Patient Problems: Problems Problem Status Onset CHF - Congestive heart failure Acute Systolic dysfunction Active Hypoxemia Active Sleep apnea Active Nicotine dependence Active Malignant hypertension Active Nonischemic cardiomyopathy Acute Renal failure Acute Edema, peripheral Acute CHRIS (acute kidney injury) Acute CKD (chronic kidney disease) Acute Acute hypoxemic respiratory failure Acute Hypertensive urgency Acute Troponin level elevated Acute
[2016-11-06] MEDS: OXYCODONE/APAP 5/325 TAB PO SCH (20:21)
[2016-11-07 04:44] LABS: POTASSIUM 4.1 mEq/L (3.5-5.2)
[2016-11-07 04:45] LABS: ANION GAP 15 mEq/L (8-16); CALCIUM 9.6 mg/dL (8.5-10.4); CARBON DIOXIDE 36 mEq/l (22-31); CHLORIDE 83 mEq/L (97-110); CREATININE 1.5 mg/dL (0.7-1.3); GLOMERULAR FILTRATION RATE 52; GLUCOSE 98 mg/dL (70-100); MAGNESIUM 1.8 mg/dL (1.6-2.3); SODIUM 134 mEq/L (134-144)
[2016-11-07] MEDS ORDERED: FUROSEMIDE 80 MG in D5W 50 ML IV SCH (09:00)
[2016-11-07] MEDS: amLODIPine BESYLATE 5 MG TAB PO SCH (10:01)
[2016-11-07] MEDS: ASPIRIN 81 MG CHEWABLE TAB PO SCH (10:01)
[2016-11-07] MEDS: metFORMIN HCL 500 MG TAB PO SCH ×2 (10:02→19:10)
[2016-11-07] MEDS: CARVEDILOL 25 MG TAB PO SCH ×2 (10:02→19:10)
[2016-11-07] MEDS: SPIRONOLACTONE 25 MG TAB PO SCH (10:02)
[2016-11-07] MEDS: ENOXAPARIN 40 MG/0.4 ML SYR SC SCH (10:04)
[2016-11-07] MEDS: ATORVASTATIN CALCIUM 20 MG TAB PO SCH (10:04)
--- NOTE | 2016-11-07 11:47 | HOSPPROG ---
Hospitalist Progress Note Assessment/Plan: 36-year-old morbidly obese man comes in with acute right-sided heart failure and anasarca. He was recently admitted here in early October for diuresis on discharge she unfortunately lost all of his medications was homeless and gained significant amount of weight. # acute cor pulmonale exacerbation/acute right-sided heart failure with anasarca and acute respiratory failure. Likely etiologies include morbid obesity and obstructive sleep apnea. After increased dose of Lasix, his creatinine did bump up to 1.5 today * Give only 1 dose of IV Lasix today, metolazone discontinued yesterday. * Recheck creatinine tomorrow * Start oral diuretics including Demadex and ongoing Aldactone tomorrow * If creatinine stable or improved can likely be discharged on this regimen, he has a bed waiting at [facility] # Morbid obesity discussed weight loss # chronic respiratory failure typically on oxygen at home # obstructive sleep apnea. Patient lost his CPAP machine several months ago and has not been using anything. He will need an outpatient evaluation for a new CPAP machine. Will have him set up an appointment after discharge # homelessness, patient plans on staying at a snf facility post hospitalization. # chronic skin wounds at the inguinal and abdominal area, wound care. Continue wound care # hypertension, patient on numerous medications will continue and monitor Disposition: Monitor patient today on decreased diuretic and recheck creatinine in a.m., will start all of his presumed home meds tomorrow morning and if his creatinine is stable or improved he can be discharged to [facility] on his current regimen. He will need a follow-up appointment scheduled with a [facility] for to resume CPAP. Subjective: Feeling still like he is fluid overloaded but clinically does look a little bit better today. He never moves very much. Objective: Vital Signs Temp Pulse Resp BP Pulse Ox 36.5 C 74 20 157/73 H 93 11/07/16 07:13 11/07/16 07:13 11/07/16 07:13 11/07/16 07:13 11/07/16 07:13 Laboratory Results 11/02/16 04:15 11/07/16 04:20 11/06/16 11/07/16 11/08/16 05:59 05:59 05:59 Intake Total 1840 2130 100 Output Total 5110 5906 1850 Balance -5083 -3540 -1180 - Physical Exam Constitutional: obese, uncomfortable Eyes: PERRL Cardiovascular: regular rate and rhythym, no murmur, rub, or gallop, edema Respiratory: no respiratory distress, reduced air movement Gastrointestinal: normoactive bowel sounds Neurologic: AAOx3 Psychiatric: interacting appropriately ICD10 Worksheet Patient Problems: Problems Problem Status Onset CHF - Congestive heart failure Acute Hypoxemia Active Malignant hypertension Active Nicotine dependence Active Sleep apnea Active Systolic dysfunction Active CHRIS (acute kidney injury) Acute Acute hypoxemic respiratory failure Acute CKD (chronic kidney disease) Acute Edema, peripheral Acute Hypertensive urgency Acute Nonischemic cardiomyopathy Acute Renal failure Acute Troponin level elevated Acute
[2016-11-07] MEDS: ENOXAPARIN 60 MG/0.6 ML SYR SC SCH (20:36)
[2016-11-07] MEDS: OXYCODONE/APAP 5/325 TAB PO SCH (20:36)
[2016-11-08 05:46] LABS: ANION GAP 14 mEq/L (8-16); CALCIUM 9.5 mg/dL (8.5-10.4); CARBON DIOXIDE 36 mEq/l (22-31); CHLORIDE 82 mEq/L (97-110); CREATININE 1.4 mg/dL (0.7-1.3); GLOMERULAR FILTRATION RATE 57; GLUCOSE 92 mg/dL (70-100); POTASSIUM 3.7 mEq/L (3.5-5.2); SODIUM 132 mEq/L (134-144)
[2016-11-08] MEDS: ATORVASTATIN CALCIUM 20 MG TAB PO SCH (10:12)
[2016-11-08] MEDS: ENOXAPARIN 60 MG/0.6 ML SYR SC SCH ×2 (10:12→21:08)
[2016-11-08] MEDS: SPIRONOLACTONE 25 MG TAB PO SCH (10:13)
[2016-11-08] MEDS: ASPIRIN 81 MG CHEWABLE TAB PO SCH (10:13)
[2016-11-08] MEDS: amLODIPine BESYLATE 5 MG TAB PO SCH (10:13)
[2016-11-08] MEDS: metFORMIN HCL 500 MG TAB PO SCH ×2 (10:13→18:17)
[2016-11-08] MEDS: TORSEMIDE 20 MG TAB PO SCH ×2 (10:14→15:24)
[2016-11-08] MEDS: CARVEDILOL 25 MG TAB PO SCH ×2 (10:14→18:17)
--- NOTE | 2016-11-08 16:51 | HOSPPROG ---
Hospitalist Progress Note Assessment/Plan: 36-year-old morbidly obese man comes in with acute right-sided heart failure and anasarca. He was recently admitted here in early October for diuresis on discharge she unfortunately lost all of his medications was homeless and gained significant amount of weight. # acute cor pulmonale exacerbation/acute right-sided heart failure with anasarca and acute respiratory failure. Likely etiologies include morbid obesity and obstructive sleep apnea. After increased dose of Lasix, his creatinine did bump up to 1.5 * cont with current oral diuretics. These are currently lower than his home dose. If volume status is stable and/or improved and Cr is stable, consider d/c tomorrow # Morbid obesity discussed weight loss # chronic respiratory failure typically on oxygen at home # obstructive sleep apnea. Patient lost his CPAP machine several months ago and has not been using anything. He will need an outpatient evaluation for a new CPAP machine. Will have him set up an appointment after discharge # homelessness, patient plans on staying at a [facility]pc facility post hospitalization. # chronic skin wounds at the inguinal and abdominal area, wound care. Continue wound care # hypertension, patient on numerous medications will continue and monitor Plan: -monitor tonight -possible d/c in a.m. -await labs in a.m. Subjective: doing better. Cr is still elevated. Still volume overloaded. Denies CP Objective: Vital Signs Temp Pulse Resp BP Pulse Ox 36.6 C 74 12 141/88 H 94 11/08/16 15:56 11/08/16 15:56 11/08/16 15:56 11/08/16 15:56 11/08/16 15:56 Laboratory Results 11/02/16 04:15 11/08/16 05:16 11/07/16 11/08/16 11/09/16 05:59 05:59 05:59 Intake Total 2130 1510 Output Total 2549 0300 Balance -5904 -7135 - Physical Exam Constitutional: no apparent distress, appears nourished, not in pain Eyes: PERRL, anicteric sclera, EOMI Ears, Nose, Mouth, Throat: moist mucous membranes, hearing normal, ears appear normal, no oral mucosal ulcers Cardiovascular: regular rate and rhythym Respiratory: no respiratory distress, no rales or rhonchi, rhonchi Gastrointestinal: normoactive bowel sounds, soft, non-tender abdomen, no palpable masses Skin: warm, normal color Neurologic: AAOx3 Psychiatric: interacting appropriately, not anxious ICD10 Worksheet Patient Problems: Problems Problem Status Onset CHF - Congestive heart failure Acute Hypoxemia Active Malignant hypertension Active Nicotine dependence Active Sleep apnea Active Systolic dysfunction Active CHRIS (acute kidney injury) Acute Acute hypoxemic respiratory failure Acute CKD (chronic kidney disease) Acute Edema, peripheral Acute Hypertensive urgency Acute Nonischemic cardiomyopathy Acute Renal failure Acute Troponin level elevated Acute
[2016-11-08] MEDS: OXYCODONE/APAP 5/325 TAB PO SCH (21:09)
[2016-11-09 04:36] LABS: % IMMATURE GRANULYOCYTES 0.3 % (0.0-1.1); ABSOLUTE IMMATURE GRANULOCYTES 0.03 10^3/uL (0.00-0.10); ADD DIFF? NO; ADD MORPH? NO; ADD SCAN? NO; ATYPICAL LYMPHOCYTE FLAG 0 (0-99); FRAGMENT RBC FLAG 0 (0-99); HEMATOCRIT 48.9 % (40.0-51.0); HEMOGLOBIN 14.7 g/dL (13.7-17.5); LEFT SHIFT FLG 0 (0-99); LIPEMIA HEMOLYSIS FLAG 80 (0-99); MEAN CELL HEMOGLOBIN 25.4 pg (27.9-34.1); MEAN CELL HEMOGLOBIN CONCENTR. 30.1 g/dL (32.4-36.7); MEAN CELL VOLUME 84.6 fL (81.5-99.8); PLATELET CLUMPS FLAG 10 (0-99); PLATELET COUNT 330 10^3/uL (150-400); RED BLOOD CELL COUNT 5.78 10^6/uL (4.40-6.38); RED CELL DISTRIBUTION WIDTH 15.4 % (11.5-15.2)
[2016-11-09 04:51] LABS: ANION GAP 13 mEq/L (8-16); CALCIUM 9.8 mg/dL (8.5-10.4); CARBON DIOXIDE 37 mEq/l (22-31); CHLORIDE 83 mEq/L (97-110); CREATININE 1.4 mg/dL (0.7-1.3); GLOMERULAR FILTRATION RATE 57; GLUCOSE 92 mg/dL (70-100); POTASSIUM 3.9 mEq/L (3.5-5.2); SODIUM 133 mEq/L (134-144)
[2016-11-09] MEDS: amLODIPine BESYLATE 5 MG TAB PO SCH (10:31)
[2016-11-09] MEDS: metFORMIN HCL 500 MG TAB PO SCH (10:31)
[2016-11-09] MEDS: SPIRONOLACTONE 25 MG TAB PO SCH (10:31)
[2016-11-09] MEDS: TORSEMIDE 20 MG TAB PO SCH ×2 (10:31→16:05)
[2016-11-09] MEDS: ATORVASTATIN CALCIUM 20 MG TAB PO SCH (10:32)
[2016-11-09] MEDS: ENOXAPARIN 60 MG/0.6 ML SYR SC SCH (10:32)
[2016-11-09] MEDS: CARVEDILOL 25 MG TAB PO SCH (10:32)
[2016-11-09] MEDS: ASPIRIN 81 MG CHEWABLE TAB PO SCH (10:32)
--- NOTE | 2016-11-09 13:35 | PDIAF ---
- Diagnosis Diagnosis: right heart failure Code Status: Full Code - Medication Management Discharge Medications: Medications to Continue on Transfer Aspirin [Aspirin 81mg (*)] 81 mg PO DAILY 10/12/16 [Last Taken 10/22/16] Carvedilol [Coreg (*)] 50 mg PO BIDMEAL 10/12/16 [Last Taken 10/22/16] Hydralazine HCl 100 mg PO BIDMEAL 10/12/16 [Last Taken 10/22/16] Metformin HCl [Metformin 1000 mg] 1,000 mg PO BIDMEAL 10/12/16 [Last Taken 10/22] amLODIPine BESYLATE [Norvasc 5 mg (*)] 5 mg PO DAILY 10/12/16 [Last Taken ] clonIDINE [Catapres (*)] 0.1 mg PO BID 10/12/16 [Last Taken 10/22/16] Spironolactone [Aldactone 25 MG (*)] 25 mg PO DAILY #30 tab 10/22/16 [Last Taken 10/22/16] Simvastatin 40 mg PO DAILY 11/01/16 [Last Taken 10/22/16] oxyCODONE/APAP 5/325 [Percocet 5/325 (*)] 1 tab PO HS 11/01/16 [Last Taken Unknown] Torsemide [Demadex] 40 mg PO BIDDIUR tab 11/09/16 [Last Taken Unknown] Discharge Medications: Refer to the Discharge Home Medication list for PRN reason. - Orders Services needed: Registered Nurse, Certified Dive Superintendent, Physical Therapy, Occupational Therapy - Labs/Radiology BMP Date: 11/13/16 (check every Sun and ) - Follow Up Care Current Providers and Referrals: Dorothy Burr PA [Primary Care Provider] - As per Instructions
--- NOTE | 2016-11-09 13:38 | PDIAF ---
- Diagnosis Diagnosis: right heart failure Code Status: Full Code - Medication Management Discharge Medications: Medications to Continue on Transfer Aspirin [Aspirin 81mg (*)] 81 mg PO DAILY 10/12/16 [Last Taken 10/22/16] Carvedilol [Coreg (*)] 50 mg PO BIDMEAL 10/12/16 [Last Taken 10/22/16] Hydralazine HCl 100 mg PO BIDMEAL 10/12/16 [Last Taken 10/22/16] Metformin HCl [Metformin 1000 mg] 1,000 mg PO BIDMEAL 10/12/16 [Last Taken 10/22] amLODIPine BESYLATE [Norvasc 5 mg (*)] 5 mg PO DAILY 10/12/16 [Last Taken ] clonIDINE [Catapres (*)] 0.1 mg PO BID 10/12/16 [Last Taken 10/22/16] Spironolactone [Aldactone 25 MG (*)] 25 mg PO DAILY #30 tab 10/22/16 [Last Taken 10/22/16] Simvastatin 40 mg PO DAILY 11/01/16 [Last Taken 10/22/16] oxyCODONE/APAP 5/325 [Percocet 5/325 (*)] 1 tab PO HS 11/01/16 [Last Taken Unknown] Torsemide [Demadex] 40 mg PO BIDDIUR tab 11/09/16 [Last Taken Unknown] Discharge Medications: Refer to the Discharge Home Medication list for PRN reason. - Orders Services needed: Registered Nurse, Certified Cost And Risk Analysis Manager, Physical Therapy, Occupational Therapy Diet Recommendation: sodium restricted Weigh Patient: daily - Labs/Radiology BMP Date: 11/13/16 (check every Sun and ) - Follow Up Care Current Providers and Referrals: Dorothy Burr PA [Primary Care Provider] - As per Instructions
[2016-11-09 13:54] VITALS: BP 158/92; PULSE 77; RESP 20; TEMP 98.2; O2SAT 94
--- NOTE | 2016-11-09 14:06 | GDS ---
[f rep st] DISCHARGE SUMMARY DIAGNOSES: 1. Acute cor pulmonale/right-sided heart failure. 2. Volume overload. 3. Morbid obesity. 4. Chronic respiratory failure. 5. Obstructive sleep apnea. 6. Homelessness. 7. Chronic skin wounds in the inguinal abdominal area. 8. Hypertension. HOSPITAL COURSE: A 36-year-old man who was recently admitted here with right-sided heart failure an d volume overload. He was aggressively diuresed. He was discharged on appropriate diuretics. On d ischarge, he says that he continued to take his medications though he had a significant weight gain. He has been, once again, diuresed, placed on medications. Please see medication reconciliation fo r specifics. His weight on the day before discharge is 161.1 kg. This is actually lower than his p revious discharge weight. He had been diuresed by total of 10 pounds on this admission as well. He has MANSOOR. He will need to use CPAP. For his morbid obesity, would continue to discuss weight loss with him. BILLING: I spent more than 30 minutes on the day of discharge coordinating care. /[id number]/[id number]
== END 2016-11-09 16:15 | DRG 292 ==
LOC: F2W 21:42
PROVIDERS: ADMIT Hospitalist; ATTEND Hospitalist
DX: I50.31 Acute diastolic (congestive) heart failure (principal); J96.10 Chronic respiratory failure, unspecified whether with hypoxia or hypercapnia; I27.81 Cor pulmonale (chronic); E66.01 Morbid (severe) obesity due to excess calories; G47.33 Obstructive sleep apnea (adult) (pediatric); I11.0 Hypertensive heart disease with heart failure; J44.9 Chronic obstructive pulmonary disease, unspecified; L98.499 Non-pressure chronic ulcer of skin of other sites with unspecified severity; Z87.891 Personal history of nicotine dependence; Z95.0 Presence of cardiac pacemaker; Z59.0 Homelessness
CPT/HCPCS: 97110-GP; 97116-GP; 97161-GP; 97166-GO; 97535-GO; J1650

== ENCOUNTER → 2017-02-20 | Outpatient (CLI) | payer MEDICAID | LOC: FCPNEURO 21:00 | PROVIDERS: ATTEND Internal Medicine Sleep Medicine | DX: G47.31 Primary central sleep apnea (principal); G47.36 Sleep related hypoventilation in conditions classified elsewhere ==